=== PATIENT | female | born 1950 | race Caucasian/White ===

== ENCOUNTER 2016-06-03 15:24 | Outpatient (CLI) | payer OTHER | END 2016-06-03 15:25 | disposition home or self-care (01) | DX: M25.562 Pain in left knee (principal) ==

== ENCOUNTER 2016-07-26 09:58 | Outpatient (CLI) | payer OTHER | END 2016-07-26 09:59 | disposition home or self-care (01) | DX: M19.012 Primary osteoarthritis, left shoulder (principal); R07.81 Pleurodynia ==

== ENCOUNTER 2016-07-26 10:35 | Outpatient (CLI) | payer OTHER | END 2016-07-26 10:36 | disposition home or self-care (01) | DX: R10.9 Unspecified abdominal pain (principal); R07.81 Pleurodynia ==

== ENCOUNTER 2016-11-10 13:37 | Inpatient (IN) | payer OTHER ==
[2016-11-10 14:17] LABS: BILIRUBIN,URINE NEGATIVE (NEGATIVE); PH,URINE 5.5 PH (5.0-7.5)
[2016-11-10] MEDS ORDERED: MORPHINE 2 MG/ML SYRINGE IVP STA (14:17)
--- NOTE | 2016-11-10 14:20 | ED Physician Documentation ---
PD HPI ABD PAIN - Stated complaint Stated Complaint: STOMACH PAIN - Chief complaint Chief Complaint: Abd Pain - History obtained from History obtained from: Patient - History of Present Illness Timing - onset: Other (4 days increasing non-migratory RLQ pain with poor appetite but no fevers or nausea. Normal BMs, no urinary complaints. Had UA in the office, reportedly normal.) Review of Systems Ten Systems: 10 systems reviewed and negative Constitutional: reports: Fatigue. 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 Derm: Skin cancer surgery - Present Medications Home Medications: Ambulatory Orders Medication Instructions Recorded Confirmed Albuterol [Ventolin Hfa] 2 puffs IH Q6HR PRN 11/19/13 11/19/13 Carvedilol 12.5 mg PO BID 11/19/13 11/10/16 Enalapril [Vasotec] 10 mg PO BID 11/19/13 11/10/16 Hydrochlorothiazide 25 mg PO DAILY 11/19/13 11/10/16 Levothyroxine [Synthroid] 200 mcg PO DAILY 11/19/13 11/10/16 metFORMIN [Glucophage] 500 mg PO BID 11/19/13 11/10/16 Ascorbic Acid [Vitamin C] 1,000 mg DAILY 11/10/16 11/10/16 Aspirin 1 tab DAILY 11/10/16 11/10/16 Atorvastatin [Lipitor] 10 mg DAILY 11/10/16 11/10/16 Calcium Carbonate [[id number]] 500 mg BID 11/10/16 11/10/16 Cholecalciferol (Vitamin D3) 2,000 unit DAILY 11/10/16 11/10/16 [Vitamin D3] Dexlansoprazole [Dexilant] 30 mg DAILY 11/10/16 11/10/16 Multivitamin [Multivitamins] 1 tab DAILY 11/10/16 11/10/16 [place]-3/Dha/Epa/Fish Oil [Fish Oil 2 tab DAILY 11/10/16 11/10/16 1,000 mg Softgel] Ranitidine HCl 300 mg BID 11/10/16 11/10/16 - Allergies Allergies/Adverse Reactions: Allergies Allergy/AdvReac Type Severity Reaction Status Date / Time betamethasone Allergy Severe Respiratory Verified 11/19/13 10:47 droperidol [From Inapsine] Allergy Severe Respiratory Verified 11/19/13 09:21 venlafaxine HCl * Allergy Severe Respiratory Verified 11/19/13 10:44 [From Effexor] nabumetone [From Relafen] Allergy Intermediate Unknown Verified 11/19/13 09:19 celecoxib [From Celebrex] AdvReac Intermediate Unknown Verified 11/19/13 10:47 Zarcetu-Chv-Vbx Reductase AdvReac Intermediate Unknown Verified 11/19/13 10:47 Inhibitor - Social History Does the pt smoke?: No Smoking Status: Never smoker - Family History Family history: reports: Non contributory PD ED PE NORMAL - Vitals Vital signs reviewed: Yes - General General: Alert and oriented X 3, No acute distress - HEENT HEENT: PERRL, EOMI - Neck Neck: Supple, no meningeal sign, No bony TTP - Cardiac Cardiac: RRR, No murmur - Respiratory Respiratory: No respiratory distress, Clear bilaterally - Abdomen Abdomen: Normal bowel sounds, Soft, Other (Mild RLQ TTP) - Back Back: No CVA TTP, No spinal TTP - Derm Derm: Normal color, Warm and dry - Extremities Extremities: No edema, No calf tenderness / cord - Neuro Neuro: Alert and oriented X 3, Normal speech - Psych Psych: Normal mood, Normal affect Results - Vitals Vitals: Vital Signs - 24 hr 11/10/16 11/10/16 11/10/16 13:41 15:01 17:15 Temperature 36.7 C 37.3 C Heart Rate 72 70 70 Respiratory 18 12 16 Rate Blood Pressure 147/71 H 126/67 161/66 H O2 Saturation 99 97 97 Oxygen O2 Source Room air - EKG (time done) 1710 Rate: Rate (enter#) (75) Rhythm: NSR (with pac) [place]: Normal Intervals: Normal TN QRS: Normal Ischemia: Normal ST segments Computer interpretation: Agree with computer - Labs Labs: Laboratory Tests 11/10/16 11/10/16 11/10/16 14:00 14:10 14:10 WBC 10.9 H RBC 5.07 Hgb 14.3 Hct 42.0 MCV 82.7 MCH 28.1 MCHC 34.0 RDW 13.4 Plt Count 242 MPV 9.2 Neut # 8.3 H Lymph # 1.6 Mellette # 0.7 Eos # 0.1 Baso # 0.1 Absolute Nucleated RBC 0.00 Nucleated RBCs 0.0 PT INR APTT Sodium 137 Potassium 4.1 Chloride 98 L Carbon Dioxide 27 Anion Gap 12.0 BUN 17 Creatinine 0.7 Estimated GFR (MDRD) 84 L Glucose 131 H Calcium 10.6 H Total Bilirubin 1.0 AST 18 ALT 21 Alkaline Phosphatase 83 Total Protein 7.2 Albumin 4.4 Globulin 2.8 Albumin/Globulin Ratio 1.6 Lipase 35 Urine Color LT. YELLOW Urine Clarity CLEAR Urine pH 5.5 Ur Specific [place] <=1.005 Urine Protein NEGATIVE Urine Glucose (UA) NEGATIVE Urine Ketones NEGATIVE Urine Occult Blood NEGATIVE Urine Nitrite NEGATIVE Urine Bilirubin NEGATIVE Urine Urobilinogen 0.2 (NORMAL) Ur Leukocyte Esterase TRACE H Urine RBC 0-5 Urine WBC 0-3 Ur Squamous Epith Cells RARE Squamous Urine Bacteria None Seen Ur Microscopic Review INDICATED Urine Culture Comments INDICATED 11/10/16 16:30 WBC RBC Hgb Hct MCV MCH MCHC RDW Plt Count MPV Neut # Lymph # Mellette # Eos # Baso # Absolute Nucleated RBC Nucleated RBCs PT 12.2 INR 1.1 APTT 22.6 L Sodium Potassium Chloride Carbon Dioxide Anion Gap BUN Creatinine Estimated GFR (MDRD) Glucose Calcium Total Bilirubin AST ALT Alkaline Phosphatase Total Protein Albumin Globulin Albumin/Globulin Ratio Lipase Urine Color Urine Clarity Urine pH Ur Specific [place] Urine Protein Urine Glucose (UA) Urine Ketones Urine Occult Blood Urine Nitrite Urine Bilirubin Urine Urobilinogen Ur Leukocyte Esterase Urine RBC Urine WBC Ur Squamous Epith Cells Urine Bacteria Ur Microscopic Review Urine Culture Comments - Rads (name of study) CT A/P Radiology: EMP read contemporaneously (Acute appendicitis without evidence of perforation) PD MEDICAL DECISION MAKING - Consults Consults: Consulted (name) (Dr. Cote, the on-call surgeon, we spoke at 401 p.m., he will see the patient in emergency department.) Departure - Departure Disposition: ED Transfer to [facility] Clinical Impression: Appendicitis Qualifiers: Appendicitis type: acute appendicitis Acute appendicitis type: with localized peritonitis Qualified Code(s): K35.3 - Acute appendicitis with localized peritonitis Condition: Stable
[2016-11-10 14:28] LABS: UA w/ MICROSCOPIC CHARGE YES
[2016-11-10 14:28] LABS: BASOPHILS # (AUTO) 0.1 10^3/uL (0.0-0.1); BASOPHILS % (AUTO) 1.1 %; EOSINOPHILS # (AUTO) 0.1 10^3/uL (0.0-0.7); EOSINOPHILS % (AUTO) 1.4 %; HGB - HEMOGLOBIN 14.3 g/dL (12.0-16.0); LYMPHOCYTES # (AUTO) 1.6 10^3/uL (1.5-3.5); LYMPHOCYTES % (AUTO) 14.7 %; MEAN CORPUSCULAR HEMOGLOBIN 28.1 pg (27.0-31.0); MEAN CORPUSCULAR VOLUME 82.7 fL (81.0-99.0); MEAN PLATELET VOLUME 9.2 fL (7.9-10.8); MONOCYTES # (AUTO) 0.7 10^3/uL (0.0-1.0); MONOCYTES % (AUTO) 6.6 %; NEUTROPHILS # (AUTO) 8.3 10^3/uL (1.5-6.6); NEUTROPHILS % (AUTO) 76.2 %; RED BLOOD COUNT 5.07 10^6/uL (4.20-5.40); RED CELL DISTRIBUTION WIDTH 13.4 % (12.0-15.0); UNCORRECTED WHITE BLOOD COUNT 10.9 x10^3/uL; WHITE BLOOD COUNT 10.9 x10^3/uL (4.8-10.8)
[2016-11-10] MEDS ORDERED: MORPHINE 2 MG/ML SYRINGE ONE (14:28)
[2016-11-10 14:44] LABS: ALBUMIN/GLOBULIN RATIO 1.6 (1.0-2.2); CALCIUM 10.6 mg/dL (8.5-10.3); CREATININE 0.7 mg/dL (0.4-1.0); POTASSIUM 4.1 mmol/L (3.5-5.0); TOTAL PROTEIN 7.2 g/dL (6.7-8.2)
[2016-11-10 14:46] LABS: UR CULTURE IF IND INDICATED; WBC,URINE 0-3 /HPF (0-5)
[2016-11-10] MEDS ORDERED: IOPAMIDOL-300 100 ML VIAL IVP ONE (15:36)
--- NOTE | 2016-11-10 15:47 | CT Preliminary Report ---
Exam: CT Abdomen/Pelvis W/ IMPRESSION: 1. Acute appendicitis without evidence of perforation. 2. No bowel obstruction or inflammatory process associated with bowel. [facility] SITE ID: [id number]
--- NOTE | 2016-11-10 15:50 | CT Report ---
EXAM: CT ABDOMEN AND PELVIS EXAM DATE: 11/10/2016 03:34 PM. CLINICAL HISTORY: IV only, RLQ pain. COMPARISONS: None. TECHNIQUE: Routine helical CT imaging was performed through the abdomen and pelvis. IV contrast: 100 mL Isovue 300. Enteric contrast: No. Reconstructions: Coronal and sagittal. In accordance with CT protocol optimization, one or more of the following dose reduction techniques w ere utilized for this exam: automated exposure control, adjustment of mA and/or KV based on patient s ize, or use of iterative reconstructive technique. FINDINGS: Lung Bases: Unremarkable. Liver: There is a 2.3 cm hypodense structure in the posterior aspect of the right lobe of the liver ( series 3, image 20) with a Hounsfield unit of 47. Gallbladder/Bile Ducts: Status post cholecystectomy. Spleen: Normal. Pancreas: Normal. Adrenal Glands: Normal. Kidneys: Normal. No masses or hydronephrosis. Peritoneal Cavity/Bowel: Normal. No free fluid, free air or adenopathy. No masses or acute inflammato ry process. The appendix is dilated up to 19 mm with adjacent fat stranding. No free fluid or free ai r in the abdomen or pelvis. No loculated fluid collection to suggest abscess. Pelvic Organs: Normal. The bladder and visualized pelvic organs are within normal limits. Vasculature: No aneurysms or other significant abnormality. Bones: No significant abnormality. Other: None. IMPRESSION: 1. Acute appendicitis without evidence of perforation. 2. No bowel obstruction or inflammatory process associated with bowel. [facility] Referring Provider Line: [phone] SITE ID: [id number]
[2016-11-10] MEDS ORDERED: PIPERACILLIN/TAZOBACTAM 3.375 GM in SODIUM CHLORIDE 0.9% MINIBAG 100 ML IV STA (16:14)
--- NOTE | 2016-11-10 16:45 | HISTORY & PHYSICAL EXAMINATION ---
Chief Complaint - Chief Complaint Chief Complaint: Abdominal pain History of Present Illness - Admitted From Admitted From:: ED - History Obtained From Records Reviewed: yes History obtained from: Patient Exam Limitations: no - History of Present Illness Pain/Problem Location Description: RLQ abdomen Severity: 6-8/10 Quality: sharp Duration: 4 days Improved with: IV pain medication Worsened by: movement Associated Symptoms: Nausea Vomiting HPI Comment/Other: 66 yo female with PMHX of HT, DM, GERD, High cholesterol,Thyroid CA s/p Thyroidectomy, Melanoma, Sleep apnea presents with 4 day hx of abdominal pain associated with Nausea and vomiting. Went to PCP yesterday and was instructed to come to ED today. She denies any diarrhea or fevers. Last meal this AM. CT scan positive for appendicitis Review of Systems - Constitutional Constitutional: reports: Fatigue - Eyes Eyes: denies: Pain - Ears, Nose & Throat Ears, Nose & Throat: denies: Ear pain - Cardiovascular Cariovascular: denies: Irregular heart rate, Palpitations, Chest pain - Respiratory Respiratory: reports: Snoring. denies: Cough, Wheezing - Gastrointestinal Gastrointestinal: reports: Abdominal pain, Nausea, Vomiting. denies: Constipation, Diarrhea - Genitourinary Genitourinary: reports: Frequency. denies: Dysuria - Musculoskeletal Musculoskeletal: denies: Muscle pain - Integumentary Integumentary: denies: Rash - Psychiatric Psychiatric: denies: Depression - Endocrine Endocrine: denies: Polyuria - Hematologic/Lymphatic Hematologic/Lymphatic: denies: Anemia - All Other Systems All Other Systems: reports: Reviewed and negative History - Past Medical History Cardiovascular: reports: Hypertension, High cholesterol Respiratory: reports: Sleep apnea (does not use CPAP) Endocrine/Autoimmune: reports: Type 2 diabetes GI: reports: GERD, Other : reports: Incontinence, Frequency HEENT: reports: None Musculoskeletal: reports: Osteoarthritis, Other Derm: reports: Psoriasis, Other MRSA Hx?: No Other Past Medical History: thyroid cancer. h pylori. 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 - Substance History Use: Uses substance without health or social issues: NONE Abuse: Recurrent use of substance despite neg consequences: NONE Dependence: Experiences withdrawal or developed tolerances: NONE Meds/Allgy - Home Medications Home Medications: Ambulatory Orders Medication Instructions Recorded Confirmed Albuterol [Ventolin Hfa] 2 puffs IH Q6HR PRN 11/19/13 11/19/13 Carvedilol 12.5 mg PO BID 11/19/13 11/10/16 Enalapril [Vasotec] 10 mg PO BID 11/19/13 11/10/16 Hydrochlorothiazide 25 mg PO DAILY 11/19/13 11/10/16 Levothyroxine [Synthroid] 200 mcg PO DAILY 11/19/13 11/10/16 metFORMIN [Glucophage] 500 mg PO BID 11/19/13 11/10/16 Ascorbic Acid [Vitamin C] 1,000 mg DAILY 11/10/16 11/10/16 Aspirin 1 tab DAILY 11/10/16 11/10/16 Atorvastatin [Lipitor] 10 mg DAILY 11/10/16 11/10/16 Calcium Carbonate [[id number]] 500 mg BID 11/10/16 11/10/16 Cholecalciferol (Vitamin D3) 2,000 unit DAILY 11/10/16 11/10/16 [Vitamin D3] Dexlansoprazole [Dexilant] 30 mg DAILY 11/10/16 11/10/16 Multivitamin [Multivitamins] 1 tab DAILY 11/10/16 11/10/16 [place]-3/Dha/Epa/Fish Oil [Fish Oil 2 tab DAILY 11/10/16 11/10/16 1,000 mg Softgel] Ranitidine HCl 300 mg BID 11/10/16 11/10/16 - Allergies Allergies/Adverse Reactions: Allergies Allergy/AdvReac Type Severity Reaction Status Date / Time betamethasone Allergy Severe Respiratory Verified 11/19/13 10:47 droperidol [From Inapsine] Allergy Severe Respiratory Verified 11/19/13 09:21 venlafaxine HCl * Allergy Severe Respiratory Verified 11/19/13 10:44 [From Effexor] nabumetone [From Relafen] Allergy Intermediate Unknown Verified 11/19/13 09:19 celecoxib [From Celebrex] AdvReac Intermediate Unknown Verified 11/19/13 10:47 Hmizqre-Asd-Isa Reductase AdvReac Intermediate Unknown Verified 11/19/13 10:47 Inhibitor Exam - Vital Signs Reviewed Vital Signs: Yes Vital Signs: Vital Signs x48h Temp Pulse Resp BP Pulse Ox 11/10/16 15:01 70 12 126/67 97 11/10/16 13:41 36.7 C 72 18 147/71 H 99 - Physical Exam General Appearance: positive: No acute distress, Alert Eyes Bilateral: positive: EOMI ENT: positive: No signs of dehydration Neck: positive: No JVD Respiratory: positive: Breath sounds nml Cardiovascular: positive: Regular rate & rhythm Peripheral Pulses: positive: 2+ Abdomen: positive: Nml bowel sounds (+ BS, Obese soft, mild tenderness to palpation. ND, No rebound or guarding. Pannus. Well healed surgical scars noted periumbilical & lower abdomen) Skin: positive: Warm, Dry Extremities: positive: Nml appearance Neurologic/Psychiatric: positive: Oriented x3, CN's nml (2-12) Conclusion/Plan - Problem List (1) Appendicitis Conclusion/Plan: 66 yo female with Multiple medical problems and multiple past surgical history now with appendicitis and liver lesion noted Admit to surgery NPO IVF Pain control Zosyn IVPB OR today for laparoscopic appendectomy possible open appendectomy. Patient will need further workup of liver lesion (Present on CT scan from 2007) Qualifiers: Appendicitis type: acute appendicitis Acute appendicitis type: with localized peritonitis Qualified Code(s): K35.3 - Acute appendicitis with localized peritonitis - Lab Results Lab results reviewed: Yes Fish Bones: 11/10/16 14:10 11/10/16 14:10 - Diagnostic Imaging Results Diagnostic Imaging Results: positive: Read contemporaneously (IMPRESSION: 1. Acute appendicitis without evidence of perforation. 2. No bowel obstruction or inflammatory process associated with bowel. There is a 2.3 cm hypodense structure in the posterior aspect of the right lobe of the liver) Issues/Core Measures - Anticipated LOS Anticipated Stay Length: Less than 2 midnights - DVT/VTE - Prophylaxis VTE/DVT Device ordered at admit?: Yes VTE/DVT Prophylaxis med ordered at admit?: Yes
[2016-11-10 16:47] LABS: INR 1.1 (0.8-1.2); PT - PROTHROMBIN TIME 12.2 secs (9.9-12.6)
[2016-11-10 16:54] LABS: PARTIAL THROMBOPLASTIN TIME 22.6 secs (24.9-33.3)
[2016-11-10] MEDS ORDERED: diphenhydrAMINE INJ 50 MG/ML VIAL IVP PRN (17:00)
[2016-11-10] MEDS ORDERED: ceFAZolin 2 GM/50 ML 50 ML IV ONE (17:00)
[2016-11-10] MEDS ORDERED: SODIUM CHLORIDE FLUSH 0.9% 10 ML SYRINGE IVP PRN (17:00)
[2016-11-10] MEDS ORDERED: MORPHINE PCA 50 MG IV PRN (17:00)
[2016-11-10] MEDS ORDERED: ONDANSETRON 4 MG/2 ML VIAL IVP PRN (17:00)
[2016-11-10] MEDS ORDERED: LACTATED RINGERS 1,000 ML IV SCH (17:00)
[2016-11-10] MEDS ORDERED: ROCURONIUM 50 MG/5 ML VIAL IVP ONE (17:15)
[2016-11-10] MEDS ORDERED: PROPOFOL 200 MG/20 ML VIAL IVP ONE (17:15)
[2016-11-10] MEDS ORDERED: KETOROLAC 30 MG/ML VIAL IVP ONE (17:15)
[2016-11-10] MEDS ORDERED: ePHEDrine 50 MG/ML AMP IVP ONE (17:15)
[2016-11-10] MEDS ORDERED: MIDAZOLAM 2 MG/2 ML VIAL IVP ONE (17:15)
[2016-11-10] MEDS ORDERED: SUCCINYLCHOLINE 200 MG/10 ML VIAL IVP ONE (17:15)
[2016-11-10] MEDS ORDERED: LIDOCAINE-MPF 2% 5 ML VIAL IM ONE (17:15)
[2016-11-10] MEDS ORDERED: PHENYLEPHRINE 50 MG/5 ML VIAL IV ONE (17:15)
[2016-11-10] MEDS ORDERED: NEOSTIGMINE 1 MG/1 ML 10 ML MDV IVP ONE (17:15)
[2016-11-10] MEDS ORDERED: ONDANSETRON 4 MG/2 ML VIAL IVP ONE (17:15)
[2016-11-10] MEDS ORDERED: SODIUM CHLORIDE 0.9% 10 ML VIAL IV ONE (17:15)
[2016-11-10] MEDS ORDERED: DEXAMETHASONE 4 MG/ML VIAL IVP ONE (17:15)
[2016-11-10] MEDS ORDERED: GLYCOPYRROLATE 1 MG/5 ML VIAL IVP ONE (17:15)
[2016-11-10] MEDS ORDERED: fentaNYL 100 MCG/2 ML VIAL IVP ONE (17:15)
[2016-11-10] MEDS ORDERED: LACTATED RINGERS 1,000 ML IV ONE ×2 (18:01→18:26)
[2016-11-10] MEDS ORDERED: LIDOCAINE MPF 1%-EPI 1:200000 30 ML VIAL SUBQ ONE (18:25)
[2016-11-10] MEDS ORDERED: MORPHINE 2 MG/ML SYRINGE IVP PRN (19:51)
[2016-11-10] MEDS ORDERED: oxyCODONE 5 MG TABLET PO PRN (19:51)
[2016-11-10] MEDS ORDERED: fentaNYL 100 MCG/2 ML VIAL ONE (20:04)
[2016-11-10] MEDS ORDERED: PANTOPRAZOLE 40 MG VIAL IVP SCH (21:00)
[2016-11-10] MEDS: PANTOPRAZOLE 40 MG VIAL IVP SCH (21:02)
[2016-11-10] MEDS: LACTATED RINGERS 1,000 ML IV SCH (21:03)
[2016-11-10] MEDS: ACETAMINOPHEN 1,000 MG/100 ML 100 ML IV SCH (21:03)
[2016-11-10] MEDS ORDERED: SODIUM CHLORIDE FLUSH 0.9% 10 ML SYRINGE IVP SCH (22:00)
[2016-11-10] MEDS: SODIUM CHLORIDE FLUSH 0.9% 10 ML SYRINGE IVP SCH (22:46)
[2016-11-10] MEDS: IBUPROFEN 400 MG TABLET PO PRN (23:42)
[2016-11-10] MEDS: BENZOCAINE/MENTHOL LOZENGE MM PRN (23:43)
[2016-11-10] MEDS: CARBOXYMETHYLCELLULOSE OPHTH DROPS EACHEYE PRN (23:57)
[2016-11-11] MEDS: INSULIN REGULAR HUMAN 100 UNIT/1 ML 10 ML MDV SUBQ SCH ×2 (00:57→06:54)
[2016-11-11] MEDS: ACETAMINOPHEN 1,000 MG/100 ML 100 ML IV SCH ×3 (04:06→14:20)
[2016-11-11] MEDS: BENZOCAINE/MENTHOL LOZENGE MM PRN (04:16)
[2016-11-11] MEDS: CARBOXYMETHYLCELLULOSE OPHTH DROPS EACHEYE PRN (04:16)
--- NOTE | 2016-11-11 06:27 | OPERATIVE REPORT ---
DATE OF SURGERY: 11/10/2016 00:00:00 PREOPERATIVE DIAGNOSIS: Abdominal pain. POSTOPERATIVE DIAGNOSIS: Acute nonperforated appendicitis. PROCEDURE: Laparoscopic appendectomy. SURGEON: Thaddeus Cote DO. ANESTHESIA: General by Karl Fuentes CRNA. FINDINGS: Acute appendicitis without rupture. SPECIMEN: Appendix. COMPLICATIONS: None. ESTIMATED BLOOD LOSS: 5 mL. URINE OUTPUT: 150 mL. INTRAVENOUS FLUIDS: 1900 mL of LR. INDICATIONS: This 66-year-old female with past medical history of diabetes, hypertension, high cholesterol, hypothyroidism presented with right lower quadrant pain for 4 days' duration associated with some nausea. She was seen by her primary care doctor and told to come to the ER due to suspicion of appendicitis. CT scan noted acute nonruptured appendicitis and a 2.3 cm hypodense structure in the posterior aspect of the right lobe of the liver with a Hounsfield unit of 47, which, after discussion with the radiologist is consistent with a hemangioma. Laparoscopic possible open procedure was discussed with the patient. The risks and benefits including, but not limited to risks of infection, bleeding, risk of abscess, risk of fistula, risk of , anesthesia risk, skin infection, scar formation, and skin irregularities were discussed with the patient. The patient agreed to the procedure and signed consent. All questions were answered. DESCRIPTION OF PROCEDURE: The patient was taken to the operating room and placed in the supine position. General anesthesia was induced after SCDs were placed. A Najera catheter was placed. The patient had been given Zosyn in the emergency room and Ancef perioperatively. The patient was prepped and draped in the usual sterile fashion. A timeout was completed verifying the correct patient , procedure site, position prior to start of procedure. Xylocaine 1% with epinephrine was used supraumbilically, as well as all trocar sites. A #15 mm blade was used to create a transverse supraumbilical incision. The abdominal cavity was accessed using the Welsh technique with a 12 mm trocar. A Bong trocar was placed supraumbilically under direct vision. A 5 mm trocar was placed suprapubically. A 5 mm trocar was placed in the left lower quadrant with both of the trocars placed under direct vision. The abdomen and pelvis were scanned with no signs of injury from the trocars. No gross pelvic disease was observed. The liver appeared unremarkable. No liver lesions were noted. Pictures were taken. The patient was then placed in Trendelenburg with the left side down. The appendix was found to be hyperemic and edematous with the tip bulbous and nonruptured and adhesed to the right parietal peritoneum. No free fluid or exudate were noted. The proximal appendix was grasped with a Andria and the appendix was freed from the adhesions. The mesoappendix was dissected bluntly and ligated with the LigaSure. A single blue load was fired across the base of the appendix with complete transection. The appendix was then removed through the umbilical port with an EndoCatch bag. The abdomen was irrigated with saline and suctioned. Hemostasis was maintained. The staple line was inspected and appeared intact with no signs of leakage or bleeding; and 0 Vicryl interrupted sutures were used to close the fascia of the 12 mm port under direct vision. The skin was then washed copiously and dried, and 4-0 Monocryl was used for subcuticular closure followed by application of Steri-Strips to the supraumbilical port and Dermabond to the other sites, then gauze and Tegaderms. The appendix was sent to pathology. The patient tolerated the procedure well, was extubated, Najera removed, and taken to PACU for recovery. All counts were correct. JOB #: [id number] EXT JOB #:[id number] ANTOINE
[2016-11-11 06:33] LABS: HEMOGLOBIN A1C 0.64 g/dL
[2016-11-11] MEDS: SODIUM CHLORIDE FLUSH 0.9% 10 ML SYRINGE IVP SCH ×2 (06:45→13:28)
[2016-11-11] MEDS: LEVOTHYROXINE 100 MCG TABLET PO SCH (06:53)
[2016-11-11] MEDS: IBUPROFEN 400 MG TABLET PO PRN ×2 (06:53→12:31)
[2016-11-11] MEDS: LACTATED RINGERS 1,000 ML IV SCH (06:54)
[2016-11-11] MEDS: POLYETHYLENE GLYCOL 3350 17 GM PACKET PO SCH (08:15)
[2016-11-11] MEDS: PANTOPRAZOLE 40 MG VIAL IVP SCH (08:15)
[2016-11-11] MEDS: hydroCHLOROthiazide 25 MG TABLET PO SCH (08:15)
[2016-11-11] MEDS: CARVEDILOL 12.5 MG TABLET PO SCH ×2 (08:15→09:31)
--- NOTE | 2016-11-11 10:15 | PROVIDER PROGRESS NOTE ---
Subjective - General Admit Date: 11/10/16 Procedure Date: 11/10/16 Post Op Days: 1 Procedure Performed: Laparoscopic appendectomy - Review of Systems Wound/Incisions: positive: Dressing dry and intact General: positive: No symptoms HEENT: positive: No symptoms Pulmonary: positive: No symptoms Cardiovascular: positive: No symptoms Gastrointestinal: positive: No symptoms, Abdominal pain (pain 4/10 post operative appropriate) Genitourinary: positive: No symptoms Musculoskeletal: positive: No symptoms Skin: positive: No symptoms Psychiatric: positive: No symptoms All Other Systems: positive: Reviewed and negative - Other Other Information/Narrative: Patient seen bedside. State pain is 4 /10. Has been ambulating some. No flatus or bowel movement. Using IS. States her right eye felt itchy and improved with saline eye drops. Denies any double vision. No other issues reported Objective - Patient Data Reviewed Vital Signs: Yes Vital Signs: Vital Signs x48h Temp Pulse Resp BP Pulse Ox 11/11/16 07:38 36.2 C L 68 16 112/64 92 11/11/16 04:13 36.2 C L 72 16 115/69 93 Weight: Weight 11/09/16 11/10/16 11/11/16 23:59 23:59 23:59 Weight (kg) 88.904 kg Intake & Output: Intake and Output Totals x24h 11/09/16 11/10/16 11/11/16 23:59 23:59 23:59 Intake Total 150 1770 Output Total 1600 Balance 150 170 - Lab Results Lab Results: 11/10/16 14:10 11/10/16 14:10 Other Lab Results: Lab Results x24hrs 11/11/16 11/11/16 11/11/16 Range/Units 06:29 05:32 00:12 POC Whole Bld Glucose 190 H 205 H (70 - 100) mg/dL Glycated Hemoglobin 6.6 H (4.6-6.2) % Estim Average Glucose 143 H (70-100) 11/10/16 Range/Units 21:33 POC Whole Bld Glucose 198 H (70 - 100) mg/dL Glycated Hemoglobin (4.6-6.2) % Estim Average Glucose (70-100) - Imaging Results Radiology Imaging: positive: Discussed with rads (Liver lesion consistent with hemangioma) - Current Medications Current Medications: Current Medications Generic Name Dose Route Start Last Admin Trade Name Freq PRN Reason Stop Dose Admin Carboxymethylcellulose 0 drops 11/10/16 23:35 11/11/16 04:16 Refresh 1% Ophth Drops EACHEYE 1 drops PRN PRN Administration Dry Eye Carvedilol 12.5 mg 11/11/16 08:00 11/11/16 09:31 Coreg PO Not Given BID HANNA Hydrochlorothiazide 25 mg 11/11/16 09:00 11/11/16 08:15 Hydrodiuril PO 25 mg DAILY HANNA Administration Acetaminophen 100 mls @ 400 mls/hr 11/10/16 21:00 11/11/16 08:15 Ofirmev IV 400 mls/hr Q6H HANNA Administration Lactated Ringer's 1,000 mls @ 75 mls/hr 11/10/16 20:32 11/11/16 06:54 Lr IV 75 mls/hr .[id number] HANNA Administration Ibuprofen 400 mg 11/10/16 19:51 11/11/16 06:53 Motrin PO 400 mg Q4HR PRN Administration Pain 1 to 4 Insulin Human Regular 1 - 5 unit 11/11/16 00:00 11/11/16 06:54 Novolin R SUBQ 2 unit Q6HR HANNA Administration Protocol Levothyroxine Sodium 200 mcg 11/11/16 07:00 11/11/16 06:53 Synthroid PO 200 mcg QDAC HANNA Administration Morphine Sulfate 3 mg 11/10/16 19:51 11/10/16 23:43 Morphine IVP 3 mg Q2HR PRN Administration Pain 8 to 10 Ondansetron HCl 4 mg 11/10/16 17:00 11/10/16 23:43 Zofran Inj IVP 4 mg Q6HR PRN Administration Nausea / Vomiting Oxycodone HCl 5 mg 11/10/16 19:51 11/11/16 04:06 Roxicodone PO 5 mg Q4HR PRN Administration Pain 5 to 7 Pantoprazole Sodium 40 mg 11/10/16 21:00 11/11/16 08:15 Protonix IVP 40 mg BID HANNA Administration Polyethylene Glycol 17 gm 11/11/16 09:00 11/11/16 08:15 Miralax PO Not Given DAILY HANNA Sodium Chloride 10 ml 11/10/16 22:00 11/11/16 06:45 Normal Saline Flush 0.9% IVP Not Given Q8HR HANNA Throat Lozenges 1 lozenge 11/10/16 21:04 11/11/16 04:16 Cepacol MM 1 lozenge Q2HR PRN Administration Throat pain - Physical Exam Wound/Incisions: positive: Dressing dry and intact General Appearance: positive: No acute distress, Alert Eyes Bilateral: positive: Normal inspection, PERRL, EOMI, No lid inflammation, Conjunctivae nml ENT: positive: No signs of dehydration Neck: positive: No JVD Cardiovascular: positive: Regular rate & rhythm Abdomen: positive: Tenderness (+ BS hypoactive, ND, Mild TTP, no rebound or guarding, surgical dressing c/d/i) Skin: positive: Warm, Dry Extremities: negative: Pedal edema, Calf tenderness, Neeraj's sign/cords Neurologic/Psychiatric: positive: Oriented x3, CN's nml (2-12) Impression/Plan - Problem List Problem List: 66 yo female with multiple medical problems s/p Laparoscopic appendectomy Continue IV abx Pain control will advance diet as tolerated. Will restart home medications
[2016-11-11] MEDS ORDERED: LACTATED RINGERS 1,000 ML IV SCH (10:20)
[2016-11-11] MEDS: INSULIN ASPART 300 UNIT/3 ML PEN SUBQ SCH (11:14)
[2016-11-11] MEDS: HEPARIN 5,000 UNIT/ML VIAL SUBQ SCH (12:18)
[2016-11-11] MEDS: PIPERACILLIN/TAZOBACTAM 3.375 GM in SODIUM CHLORIDE 0.9% MINIBAG 100 ML IV SCH (12:23)
[2016-11-11] MEDS: SODIUM CHLORIDE FLUSH 0.9% 10 ML SYRINGE IVP PRN ×2 (12:24→14:20)
[2016-11-11 14:26] LABS: BUN - BLOOD UREA NITROGEN 14 mg/dL (6-20); CALCIUM 9.7 mg/dL (8.5-10.3); CARBON DIOXIDE - CO2 24 mmol/L (21-32); CHLORIDE 94 mmol/L (101-111); CREATININE 0.9 mg/dL (0.4-1.0); GFR - MDRD 63 (>89); GLUCOSE 196 mg/dL (70-100); POTASSIUM 3.7 mmol/L (3.5-5.0); SODIUM 128 mmol/L (135-145)
[2016-11-11] MEDS ORDERED: SODIUM CHLORIDE 0.9% 1,000 ML IV ONE (16:36)
[2016-11-11] MEDS ORDERED: SODIUM CHLORIDE 0.9% 1,000 ML IV SCH (20:00)
[2016-11-11] MEDS ORDERED: FUROSEMIDE 20 MG/2 ML VIAL IVP SCH (21:10)
[2016-11-11 21:18] LABS: CALCIUM 9.8 mg/dL (8.5-10.3); CREATININE 0.8 mg/dL (0.4-1.0); POTASSIUM 3.5 mmol/L (3.5-5.0)
[2016-11-12] MEDS: INSULIN ASPART 300 UNIT/3 ML PEN SUBQ SCH ×3 (01:22→07:42)
[2016-11-12] MEDS: ACETAMINOPHEN 1,000 MG/100 ML 100 ML IV SCH ×3 (01:23→08:19)
[2016-11-12] MEDS: HEPARIN 5,000 UNIT/ML VIAL SUBQ SCH ×2 (01:23→08:18)
[2016-11-12] MEDS: PIPERACILLIN/TAZOBACTAM 3.375 GM in SODIUM CHLORIDE 0.9% MINIBAG 100 ML IV SCH ×3 (01:23→06:17)
[2016-11-12] MEDS: CARVEDILOL 12.5 MG TABLET PO SCH ×2 (01:23→08:20)
[2016-11-12] MEDS: SODIUM CHLORIDE FLUSH 0.9% 10 ML SYRINGE IVP SCH ×2 (01:24→06:20)
[2016-11-12] MEDS: PANTOPRAZOLE 40 MG VIAL IVP SCH ×2 (01:24→08:20)
[2016-11-12 06:21] LABS: CALCIUM 9.4 mg/dL (8.5-10.3); CREATININE 0.9 mg/dL (0.4-1.0); POTASSIUM 3.9 mmol/L (3.5-5.0)
[2016-11-12] MEDS: LEVOTHYROXINE 100 MCG TABLET PO SCH (06:21)
[2016-11-12] MEDS: POLYETHYLENE GLYCOL 3350 17 GM PACKET PO SCH (08:20)
[2016-11-12] MEDS: hydroCHLOROthiazide 25 MG TABLET PO SCH (08:20)
[2016-11-12] MEDS: SODIUM CHLORIDE FLUSH 0.9% 10 ML SYRINGE IVP PRN (08:21)
[2016-11-12 08:42] VITALS: BP 125/66
--- NOTE | 2016-11-12 10:01 | PROVIDER PROGRESS NOTE ---
Subjective - General Admit Date: 11/10/16 Procedure Date: 11/10/16 Post Op Days: 2 Procedure Performed: Laparoscopic appendectomy - Review of Systems Wound/Incisions: positive: Healing well, Dressing dry and intact General: positive: No symptoms HEENT: positive: No symptoms Pulmonary: positive: No symptoms Cardiovascular: positive: No symptoms Gastrointestinal: positive: No symptoms, Abdominal pain (pain 4/10 post operative appropriate) Genitourinary: positive: No symptoms Musculoskeletal: positive: No symptoms Skin: positive: No symptoms Psychiatric: positive: No symptoms All Other Systems: positive: Reviewed and negative - Other Other Information/Narrative: Patient seen at bedside. States she feels improved. Has been using IS, ambulating urinating well and passing gas. No issues. Objective - Patient Data Reviewed Vital Signs: Yes Vital Signs: Vital Signs x48h Temp Pulse Resp BP Pulse Ox 11/12/16 08:41 36.7 C 56 L 16 125/66 94 11/12/16 05:08 36.3 C L 66 16 109/66 97 Weight: Weight 11/10/16 11/11/16 11/12/16 23:59 23:59 23:59 Weight (kg) 88.904 kg Intake & Output: Intake and Output Totals x24h 11/10/16 11/11/16 11/12/16 23:59 23:59 23:59 Intake Total 150 2311 510 Output Total 1600 Balance 150 711 510 - Lab Results Lab Results: 11/10/16 14:10 11/12/16 05:40 Other Lab Results: Lab Results x24hrs 11/12/16 11/12/16 11/11/16 Range/Units 07:33 05:40 21:03 Sodium 139 133 L (135-145) mmol/L Potassium 3.9 3.5 (3.5-5.0) mmol/L Chloride 103 97 L (101-111) mmol/L Carbon Dioxide 28 26 (21-32) mmol/L Anion Gap 8.0 10.0 (6-13) BUN 13 14 (6-20) mg/dL Creatinine 0.9 0.8 (0.4-1.0) mg/dL Estimated GFR (MDRD) 63 L 72 L (>89) Glucose 132 H 212 H (70-100) mg/dL POC Whole Bld Glucose 130 H (70 - 100) mg/dL Calcium 9.4 9.8 (8.5-10.3) mg/dL Ionized Calcium PTH Intact (12-88) pg/mL 11/11/16 11/11/16 11/11/16 Range/Units 20:26 16:39 14:05 Sodium 128 L (135-145) mmol/L Potassium 3.7 (3.5-5.0) mmol/L Chloride 94 L (101-111) mmol/L Carbon Dioxide 24 (21-32) mmol/L Anion Gap 10.0 (6-13) BUN 14 (6-20) mg/dL Creatinine 0.9 (0.4-1.0) mg/dL Estimated GFR (MDRD) 63 L (>89) Glucose 196 H (70-100) mg/dL POC Whole Bld Glucose 264 H 140 H (70 - 100) mg/dL Calcium 9.7 (8.5-10.3) mg/dL Ionized Calcium NO PTH Intact (12-88) pg/mL 11/11/16 11/11/16 Range/Units 14:05 11:04 Sodium (135-145) mmol/L Potassium (3.5-5.0) mmol/L Chloride (101-111) mmol/L Carbon Dioxide (21-32) mmol/L Anion Gap (6-13) BUN (6-20) mg/dL Creatinine (0.4-1.0) mg/dL Estimated GFR (MDRD) (>89) Glucose (70-100) mg/dL POC Whole Bld Glucose 195 H (70 - 100) mg/dL Calcium (8.5-10.3) mg/dL Ionized Calcium PTH Intact 49 (12-88) pg/mL - Current Medications Current Medications: Current Medications Generic Name Dose Route Start Last Admin Trade Name Freq PRN Reason Stop Dose Admin Carboxymethylcellulose 0 drops 11/10/16 23:35 11/11/16 04:16 Refresh 1% Ophth Drops EACHEYE 1 drops PRN PRN Administration Dry Eye Carvedilol 12.5 mg 11/11/16 08:00 11/12/16 08:20 Coreg PO 12.5 mg BID HANNA Administration Heparin Sodium (Porcine) 5,000 unit 11/11/16 12:00 11/12/16 08:18 SUBQ 5,000 unit BID HANNA Administration Hydrochlorothiazide 25 mg 11/11/16 09:00 11/12/16 08:20 Hydrodiuril PO 25 mg DAILY HANNA Administration Acetaminophen 100 mls @ 400 mls/hr 11/10/16 21:00 11/12/16 08:19 Ofirmev IV 400 mls/hr Q6H HANNA Administration Piperacillin Sod/Tazobactam 100 mls @ 200 mls/hr 11/11/16 12:00 11/12/16 06:17 Sod 3.375 gm/ Sodium Chloride IV 200 mls/hr Q6H HANNA Administration Ibuprofen 400 mg 11/10/16 19:51 11/11/16 12:31 Motrin PO 400 mg Q4HR PRN Administration Pain 1 to 4 Insulin Aspart 1 - 5 unit 11/11/16 12:00 11/12/16 07:42 Novolog SUBQ Not Given 0800,1200,1700,2100 [facility] Protocol Levothyroxine Sodium 200 mcg 11/11/16 07:00 11/12/16 06:21 Synthroid PO 200 mcg QDAC HANNA Administration Morphine Sulfate 3 mg 11/10/16 19:51 11/10/16 23:43 Morphine IVP 3 mg Q2HR PRN Administration Pain 8 to 10 Ondansetron HCl 4 mg 11/10/16 17:00 11/10/16 23:43 Zofran Inj IVP 4 mg Q6HR PRN Administration Nausea / Vomiting Oxycodone HCl 5 mg 11/10/16 19:51 11/11/16 04:06 Roxicodone PO 5 mg Q4HR PRN Administration Pain 5 to 7 Pantoprazole Sodium 40 mg 11/10/16 21:00 11/12/16 08:20 Protonix IVP 40 mg BID HANNA Administration Polyethylene Glycol 17 gm 11/11/16 09:00 11/12/16 08:20 Miralax PO 17 gm DAILY HANNA Administration Sodium Chloride 10 ml 11/10/16 17:00 11/12/16 08:21 Normal Saline Flush 0.9% IVP 10 ml PRN PRN Administration NEEDED PER PROVIDER ORDERS Sodium Chloride 10 ml 11/10/16 22:00 11/12/16 06:20 Normal Saline Flush 0.9% IVP 10 ml Q8HR HANNA Administration Throat Lozenges 1 lozenge 11/10/16 21:04 11/11/16 04:16 Cepacol MM 1 lozenge Q2HR PRN Administration Throat pain - Physical Exam Wound/Incisions: positive: Healing well General Appearance: positive: No acute distress Eyes Bilateral: positive: EOMI ENT: positive: No signs of dehydration Neck: positive: No JVD Respiratory: positive: Chest non-tender Cardiovascular: positive: Regular rate & rhythm Abdomen: positive: Non-tender Skin: positive: Warm, Dry Extremities: positive: Non-tender Neurologic/Psychiatric: positive: Oriented x3, CN's nml (2-12) Impression/Plan - Problem List Problem List: 66 yo female with Diabetes, Hypertension, Hypothyroid, s/p Laparoscopic appendectomy for acute appendicitis with localized peritonitis Patient's overall condition improved. Sugars under control. Will discharge home on Bactrim DS Follow up in surgery clinic this coming week
--- NOTE | 2016-11-12 10:23 | Discharge Plan ---
Discharge Plan Disposition: Home, Self Care Condition: Stable Prescriptions: Hydrocodone/Acetaminophen [Vicodin 5-300 mg Tablet] 1 each PO Q6HR PRN #20 tablet PRN Reason: Pain Ondansetron HCl [Zofran] 8 mg PO Q8HR PRN #12 tablet PRN Reason: Nausea / Vomiting Sulfamethox/Trimeth 800/160 [Bactrim Ds 800/160] 1 each PO BID #20 tablet Docusate Sodium 250Mg Capsule [Colace 250Mg Capsule] 250 mg PO BID PRN #30 capsule PRN Reason: Constipation Diet: Diabetic Activity Restrictions: Activity as Tolerated (Do not lift more than 20 lbs) Shower Restrictions: No Driving Restrictions: Yes (No driving while taking narcotics) Weight Bearing: Full Weight Additional Instructions or Follow Up instructions: You can restart all your home medications. You must ambulate 30 minutes 3 times daily. Continue using incentive spirometer 3 times daily. No heavy lifting more than [address], operate heavy machinery or sign documents on narcotic pain medication. You may take motrin or Tylenol for pain every 6 hours instead of Narcotic pain medication. You may shower with dressing on. Leave dressing on until 11/14/16. you may take off outer dressing and leave steri-strips alone, they will fall off on their own. If wound develops redness or discharge call me for further instructions. If severe abdominal pain returns or develop fevers, return to the ER for evaluation. Please call 19/12 with any questions. Follow up next week in the office. Please call Monday for an appointment same week [phone]. No Smoking: If you smoke, Please STOP! Call for help. Follow-up with: Esperanza Richardson PA [Primary Care Provider] - 1 Week Thaddeus Cote DO [Provider Admit Priv/Credential] - 1 Week
--- NOTE | 2016-11-13 02:25 | DISCHARGE SUMMARY ---
DATE OF ADMISSION: 11/10/2016 DATE OF DISCHARGE: 11/12/2016 ATTENDING PHYSICIAN: Thaddeus Cote DO CONDITION ON DISCHARGE: Stable & improved. FINAL DIAGNOSIS: Acute appendicitis with localized peritonitis. PROCEDURE: Laparoscopic appendectomy. HISTORY OF PRESENT ILLNESS: This 66-year-old female, with past medical history of hypertension, diabetes, GERD, high cholesterol, thyroid cancer status post thyroidectomy, melanoma, and sleep apnea, presented with a 4-day history of abdominal pain associated with nausea and vomiting. She went to her PCP yesterday and was instructed to come to the ED. She denied any diarrhea or fevers. Her last meal was that morning. She reported the pain as in the right lower quadrant of the abdomen, 6/10 to 8/10, a sharp, constant pain worsened by movement and associated with nausea and vomiting. CT scan performed was positive for acute appendicitis, as well as a 2.3 cm hypodense structure in the posterior aspect of the right lobe of the liver with a Hounsfield unit of 47, which was determined by radiologist to be a hemangioma. LABORATORY DATA: Her WBCs on admission was 10.9 thousand. Her glucose was 131. Her calcium on admission was 10.6, which decreased to 9.7 on discharge. The PTH was 49. Her urine had trace leukocytes with no bacteria. HOSPITAL COURSE: She was admitted to the med/surg floor under surgical service. IV fluids and Zosyn were given. The patient was made aware of her diagnosis, and the options for treatment, as well as surgical options were discussed. The patient was taken to the OR for a laparoscopic appendectomy. Please see dictated operative report. Postoperatively the patient had hyperglycemia, which was managed with insulin coverage. She also had a brief marjorie in her sodium, which quickly recovered. She continued to receive IV antibiotics while she was in the hospital due to her immunocompromised state. Her diet was advanced, pain was well controlled, and she was sent home on postop day #2. DISCHARGE MEDICATIONS This patient was discharged on: 1. Bancroft 5/325 at 1 tablet orally q.6 hours p.r.n. pain #20. 2. Zofran 8 mg orally q.8 hours as needed for nausea and vomiting #12. 3. Bactrim DS 800/160 at 1 pill orally every 12 hours #20. 4. Docusate sodium 250 mg capsule twice daily orally as needed for constipation #30. DISCHARGE INSTRUCTIONS The patient was instructed to: 1. Resume her diet, keep it a diabetic diet. 2. She had no activity restrictions, it was activity as tolerated, but she was also instructed not to lift more than 20 pounds. 3. There were no shower restrictions. 4. Driving restrictions only if she was taking the narcotics. 5. She has full weightbearing status. 6. She was instructed to restart all her home medications. 7. She was instructed to ambulate 30 minutes 3 times daily. 8. Continue using her incentive spirometer 3 times daily. 9. Do not drive, operate heavy machinery, or sign of documents on narcotic pain medication. 10. Take Motrin or Tylenol for pain every 6 hours instead of the narcotic pain medication. 11. Shower with the dressing on, and to leave the umbilical dressing on for 2 days, and then she may remove it, and to not touch the Steri-Strips underneath; she was instructed that they will fall off on their own. 12. She was instructed that if the wound develops redness or discharge, call me for further instructions, as well as to call me if constipation lasts more than 48 hours. 13. She was instructed if severe abdominal pain returns, or if she develops fevers, to return to the ER for evaluation. 14. She was instructed to call 19/12 with any questions. 15. She was instructed to follow up with her primary care doctor within 1 week, and to follow up with me within 1 week. Phone numbers were given. A work note was also given. CODE STATUS: FULL CODE. JOB #: [id number] EXT JOB #:[id number] [facility]
== END 2016-11-12 11:14 | disposition home or self-care (01) | DRG 339 ==
LOC: ED 13:37 → MS 17:00
PROVIDERS: ADMIT Surgery; ATTEND Surgery
PROC: 0DTJ4ZZ Resection of Appendix, Percutaneous Endoscopic Approach (ICD-10-PCS; principal; 2016-11-10 17:00)
DX: K35.3 Acute appendicitis with localized peritonitis (principal); E87.1 Hypo-osmolality and hyponatremia; I10 Essential (primary) hypertension; E11.65 Type 2 diabetes mellitus with hyperglycemia; K21.9 Gastro-esophageal reflux disease without esophagitis; E78.00 Pure hypercholesterolemia, unspecified; G47.30 Sleep apnea, unspecified; C43.9 Malignant melanoma of skin, unspecified; Z85.850 Personal history of malignant neoplasm of thyroid; Z79.51 Long term (current) use of inhaled steroids; Z79.84 Long term (current) use of oral hypoglycemic drugs; Z79.899 Other long term (current) drug therapy
CPT/HCPCS: 36415; 74177; 80048; 80053; 81001; 81003; 83036; 83690; 83970; 85025; 85610; 85730; 86850; 86900; 86901; 87086; 88304; 93005; 93010; 96374; 96375; 99283; 99285

== ENCOUNTER 2017-02-17 15:20 | Outpatient (CLI) | payer OTHER ==
--- NOTE | 2017-02-20 11:44 | DEXA Report ---
DEXA SCAN: 02/17/2017 CLINICAL INDICATION: Postmenopausal. TECHNIQUE: Dual energy x-ray absorptiometry (DXA) was performed on a [employer] system. Regions measured are the AP spine, femoral neck, and, if needed, forearm. COMPARISON: None. In accordance with the International Society for Clinical Densitometry (ISCD) guidelines, data from previous exams may be reanalyzed using current recommendations and techniques. This is done to allow a more accurate basis for comparison with the current study. FINDINGS The data for the lumbar spine is as follows: REGION BMD (g/cm/cm) T-SCORE Z-SCORE L1 1.211 0.7 1.4 L2 1.196 0.0 0.7 L3 1.519 2.7 3.3 L4 1.568 3.1 3.8 TOTAL 1.307 1.1 1.8 NOTE: All evaluable vertebrae are used for classification. The data for the hip is as follows: REGION BMD (g/cm/cm) T-SCORE Z-SCORE Neck 1.024 -0.1 0.8 TOTAL 0.992 -0.1 0.4 NOTE: The femoral neck or total proximal femur, whichever is lowest, is used for classification. IMPRESSION: THE WHO CLASSIFICATION BASED ON THE INTERNATIONAL REFERENCE STANDARD IS NORMAL. THE FRACTURE RISK IS NOT INCREASED. RECOMMENDATION: Patients with diagnosis of osteoporosis or osteopenia should have regular bone mineral density assessment. For those eligible for Medicare, routine testing is allowed once every 2 years. Testing frequency can be increased for patients who have rapidly progressing disease or for those who are receiving medical therapy to restore bone mass. COMMENT: World Health Organization (WHO) definitions for osteoporosis and osteopenia: NORMAL BMD: T-score at -1.0 or higher, fracture risk is low. OSTEOPENIA BMD: T-score between -1.0 and -2.5, fracture risk is increased. OSTEOPOROSIS BMD: T-score at -2.5 or lower, fracture risk high. National Osteoporosis Foundation recommends: 1. Obtain adequate dietary calcium (at least 1200 mg per day) and vitamin D (400 -800 international units per day). 2. Participate, as appropriate, in regular weightbearing and muscle- strengthening exercise. 3. Avoid tobacco use and reduce alcohol and caffeine intake. 4. For more detailed information see the website at www.NOF.org. MTDD
== END 2017-02-17 15:21 | disposition home or self-care (01) ==
LOC: DI 15:20
PROVIDERS: ATTEND Physician Assistant
DX: N95.8 Other specified menopausal and perimenopausal disorders (principal)
CPT/HCPCS: 77080

== ENCOUNTER 2017-03-07 14:27 | Outpatient (CLI) | payer OTHER ==
--- NOTE | 2017-03-09 17:25 | Mammography Report ---
DIGITAL SCREENING MAMMOGRAM: 03/07/2017 CLINICAL INDICATION: A 66-year-old for screening. COMPARISON: 02/2016, 02/2015, 01/2014, 12/2012, 12/2011, 04/2010. TECHNIQUE: Routine CC and MLO projections were obtained of the breasts. FINDINGS: Scattered fibroglandular tissue is present within the breasts. There are no dominant mass es, suspicious microcalcifications, or secondary signs of malignancy. In comparison to the previous studies, there are no significant changes. ASSESSMENT: NO MAMMOGRAPHIC EVIDENCE OF MALIGNANCY. NO SIGNIFICANT INTERVAL CHANGES. RECOMMENDATION: Screening mammography is recommended annually. BIRADS category 1 - negative. STANDARD QUALIFYING STATEMENTS 1. This examination was reviewed with the aid of Computed-Aided Detection (CAD). 2. A negative or benign imaging report should not delay biopsy if clinically suspicious findings are present. Consider surgical consultation if warranted. More than 5% of cancers are not identified b y imaging. 3. Dense breasts may obscure an underlying neoplasm. JOB #: [id number] EXT JOB #:[id number]
== END 2017-03-07 14:28 | disposition home or self-care (01) ==
LOC: DI.S 14:27
PROVIDERS: ATTEND Physician Assistant
DX: Z12.31 Encounter for screening mammogram for malignant neoplasm of breast (principal)
CPT/HCPCS: 77067

== ENCOUNTER 2017-03-13 14:52 | Outpatient (CLI) | payer OTHER | END 2017-03-13 14:53 | disposition home or self-care (01) | LOC: SC 14:52 | PROVIDERS: ATTEND Internal Medicine Pulmonary Disease | DX: G47.33 Obstructive sleep apnea (adult) (pediatric) (principal) | CPT/HCPCS: 99203; 99212 ==

== ENCOUNTER 2018-04-11 14:45 | Outpatient (CLI) | payer OTHER ==
--- NOTE | 2018-04-13 12:59 | Mammography Report ---
Reason: SCREENING MAMMO Procedure Date: 04/11/2018 Accession Number: [id number] / [id number] Procedure: COLIN - Screening Mammo w/Oliver CPT Code: FULL RESULT: EXAM: Screening Mammo w/Oliver DATE: 04/11/2018 3:54 PM CLINICAL HISTORY: 67-year-old female with history of early menses for screening. TECHNIQUE: Bilateral CC and MLO views were obtained. COMPARISON: 04/11/2018, 03/07/2017, 03/07/2016, 03/04/2015. FINDINGS: The breasts demonstrate scattered fibroglandular densities bilaterally. There are coarse typically benign calcifications bilaterally. No suspicious masses, clustered microcalcifications, or regions of architectural distortion are identified. IMPRESSION: Benign findings RECOMMENDATION: Routine annual screening unless otherwise clinically indicated. BIRADS CATEGORY 2: Benign findings STANDARD QUALIFYING STATEMENTS: 1. This examination was not reviewed with the aid of Computer-Aided Detection (CAD). 2. A negative or benign imaging report should not delay biopsy if clinically suspicious findings are present. Consider surgical consultation if warranted. More than 5% of cancers are not identified by imaging. 3. Dense breasts may obscure an underlying neoplasm. 4. This examination was reviewed with the aid of 3D breast imaging (tomosynthesis).
== END 2018-04-11 14:46 | disposition home or self-care (01) ==
LOC: DI 14:45
PROVIDERS: ATTEND Physician Assistant
DX: Z12.31 Encounter for screening mammogram for malignant neoplasm of breast (principal)
CPT/HCPCS: 77063; 77067

== ENCOUNTER 2018-06-12 15:54 | Outpatient (CLI) | payer OTHER, MEDICARE ==
--- NOTE | 2018-06-13 17:09 | XRAY Report ---
Reason: INJURY OF RIGHT WRIST, HAND, FINGERS Procedure Date: 06/12/2018 Accession Number: [id number] / [id number] Procedure: XR - Hand 3 View RT CPT Code: FULL RESULT: EXAM: RIGHT HAND RADIOGRAPHY EXAM DATE: 06/12/2018 04:08 PM. CLINICAL HISTORY: Injury of right wrist, hand, fingers. COMPARISON: None. TECHNIQUE: 4 views. FINDINGS: Bones: Normal. No fractures or bone lesions. Joints: Mild to moderate diffuse degenerative changes throughout the fingers. No subluxations. Soft Tissues: Normal. No soft tissue swelling. IMPRESSION: 1. No right hand fracture or malalignment seen. 2. Mild to moderate diffuse degenerative changes throughout the fingers. RADIA
== END 2018-06-12 15:55 | disposition home or self-care (01) ==
LOC: DI 15:54
PROVIDERS: ATTEND Physician Assistant
DX: S69.91XA Unspecified injury of right wrist, hand and finger(s), initial encounter (principal); M19.041 Primary osteoarthritis, right hand

== ENCOUNTER 2018-10-24 11:15 | Emergency (ER) | payer OTHER, MEDICARE ==
[2018-10-24 11:21] VITALS: BP 174/86
--- NOTE | 2018-10-24 13:18 | ED Physician Documentation ---
History of Present Illness - Stated complaint Stated Complaint: LEG PX - Chief complaint Chief Complaint: General - History obtained from History obtained from: Patient - History of Present Illness Timing: How many days ago (5 days) - Additonal information Additional information: This is a 68-year-old woman who presents with complaints that she was at work 5 days ago when a wood pallet fell hitting the back of her right lower leg across the Achilles tendon. It has been sore and stinging since then and she is concerned that it may be getting infected. She is diabetic but she has not checked her blood sugar since this started. She takes metformin.It does hurt when she puts weight down on the foot. She is been nauseous and vomited yesterday. No fever. She is been cleaning this with just soap and water applying a bandage on it with Neosporin and continued working. Her last tetanus vaccine was more than 5 years ago. Review of Systems Constitutional: denies: Fever Musculoskeletal: reports: Extremity pain (Right lower leg over the Achilles where there is a wound.) Neurologic: denies: Near syncope Endocrine: reports: Other (She is diabetic but has not checked her blood sugar since the injury.) PD PAST MEDICAL HISTORY - Past Medical History Cardiovascular: Hypertension, High cholesterol Respiratory: None Endocrine/Autoimmune: Type 2 diabetes GI: GERD, Other : Incontinence, Frequency HEENT: None Psych: None Musculoskeletal: Chronic back pain Derm: Psoriasis, Other - Past Surgical History General: Cholecystectomy Ortho: Spine surgery, Other /[employer]: Tubal ligation, Hysterectomy Derm: Skin cancer surgery - Present Medications Home Medications: Ambulatory Orders Medication Instructions Recorded Confirmed RX: Carvedilol 12.5 mg PO BID 11/19/13 11/11/16 RX: Enalapril [Vasotec] 10 mg PO BID 11/19/13 11/11/16 RX: Hydrochlorothiazide 25 mg PO DAILY 11/19/13 11/11/16 RX: Levothyroxine [Synthroid] 200 mcg PO DAILY 11/19/13 11/11/16 RX: metFORMIN [Glucophage] 500 mg PO QDBREAKFAST 11/19/13 11/11/16 RX: Ascorbic Acid [Vitamin C] 1,000 mg PO DAILY 11/10/16 11/11/16 RX: Aspirin 325 mg PO DAILY 11/10/16 11/11/16 RX: Atorvastatin [Lipitor] 10 mg PO QPM 11/10/16 11/11/16 RX: Cholecalciferol (Vitamin D3) 2,000 unit PO DAILY 11/10/16 11/11/16 [Vitamin D3] RX: raNITIdine HCl [Ranitidine HCl] 300 mg PO BID 11/10/16 11/11/16 RX: Calcium Carbonate [Tums 1,000 mg PO DAILY 11/11/16 11/11/16 (Calcium Carbonate 500mg)] RX: Dexlansoprazole [Dexilant] 60 mg PO DAILY 11/11/16 11/11/16 RX: Metformin HCl 1,000 mg PO QDDINNER 11/11/16 11/11/16 RX: Multivitamin [Theragran] 1 tab PO DAILY 11/11/16 11/11/16 RX: Derby-3 Acid Ethyl Esters 1 gm PO DAILY 11/11/16 11/11/16 [Lovaza] Docusate Sodium 250Mg Capsule 250 mg PO BID PRN #30 capsule 11/12/16 [Colace 250Mg Capsule] Hydrocodone/Acetaminophen [Vicodin 1 each PO Q6HR PRN #20 tablet 11/12/16 5-300 mg Tablet] Ondansetron HCl [Zofran] 8 mg PO Q8HR PRN #12 tablet 11/12/16 Sulfamethox/Trimeth 800/160 1 each PO BID #20 tablet 11/12/16 [Bactrim Ds 800/160] Cephalexin [Keflex] 500 mg PO Q6H #28 capsule 10/24/18 - Allergies Allergies/Adverse Reactions: Allergies Allergy/AdvReac Type Severity Reaction Status Date / Time betamethasone Allergy Severe Respiratory Verified 10/24/18 11:21 droperidol [From Inapsine] Allergy Severe Respiratory Verified 10/24/18 11:21 venlafaxine HCl * Allergy Severe Respiratory Verified 10/24/18 11:21 [From Effexor] nabumetone [From Relafen] Allergy Intermediate Unknown Verified 10/24/18 11:21 celecoxib [From Celebrex] AdvReac Intermediate Unknown Verified 10/24/18 11:21 Urfbgbq-Uey-Pyl Reductase AdvReac Intermediate Unknown Verified 10/24/18 11:21 Inhibitor - Social History Does the pt smoke?: No Smoking Status: Never smoker PD ED PE NORMAL - General General: Alert and oriented X 3 - HEENT HEENT: Atraumatic - Respiratory Respiratory: No respiratory distress - Neuro Neuro: Alert and oriented X 3 PD ED PE EXPANDED - Extremities Extremities: Right leg ROMAN LE visual: 1 - rash (Erythema), abrasion, swelling, tenderness Results - Vitals Vitals: Vital Signs - 24 hr 10/24/18 11:16 Temperature 36.6 C Heart Rate 81 Respiratory 14 Rate Blood Pressure 174/86 H O2 Saturation 99 Oxygen O2 Source Room air PD MEDICAL DECISION MAKING - ED course Complexity details: d/w patient ED course: Patient will be placed on Keflex 500mg4 times a day. She is been taking Motrin for her low back pain and thinks that may be why she has an upset stomach. We are going to try Aleve and have her stop the ibuprofen.She is going on use her breaks at work to raise her leg and help reduce the edema. She also elevate the leg at night.She is not placed on any specific work restrictions. Continue to cleanse the wound and apply antibiotic ointment. Recheck if not improving. Departure - Departure Disposition: 01 Home, Self Care Clinical Impression: Abrasion Cellulitis Qualifiers: Site of cellulitis: extremity Site of cellulitis of extremity: lower extremity Laterality: right Qualified Code(s): L03.115 - Cellulitis of right lower limb Condition: Good Instructions: ED Abrasion, ED Infec Skin Cellulitis Follow-Up: Esperanza Richardson PA [Primary Care Provider] - Within 3 Days (Follow-up if not improving.) Prescriptions: Cephalexin [Keflex] 500 mg PO Q6H #28 capsule Comments: Take the Keflex 4 times a day. I would discontinue the ibuprofen and start Aleve 1 tablet twice a day.Continue to clean the wound with mild soap and water and apply antibiotic ointment and keep it covered. Elevate the leg as much as possible to reduce the swelling. If you are not seeing improvement in 48 hours this should be rechecked. Discharge Date/Time: 10/24/18 14:05
[2018-10-24] MEDS ORDERED: TETANUS/DIPHTHERIA/PERTUSSIS 0.5 ML SYRINGE IM ONE (13:46)
== END 2018-10-24 14:05 | disposition home or self-care (01) ==
LOC: ED 11:15
DX: S80.811A Abrasion, right lower leg, initial encounter (principal); L03.115 Cellulitis of right lower limb; W20.8XXA Other cause of strike by thrown, projected or falling object, initial encounter; Y99.0 Civilian activity done for income or pay; Z23 Encounter for immunization; M54.5 Low back pain; E11.9 Type 2 diabetes mellitus without complications; Z79.84 Long term (current) use of oral hypoglycemic drugs; I10 Essential (primary) hypertension; Z79.82 Long term (current) use of aspirin
CPT/HCPCS: 1040M; 90471; 90715; 99283

== ENCOUNTER 2018-11-09 07:01 | Outpatient (CLI) | payer OTHER, MEDICARE ==
[2018-11-09 09:51] LABS: BILIRUBIN,URINE NEGATIVE (NEGATIVE); GLUCOSE, URINE (UA) NEGATIVE (NEGATIVE); KETONES,URINE (UA) NEGATIVE (NEGATIVE); LEUKOCYTE ESTERASE, URINE NEGATIVE (NEGATIVE); NITRITE,URINE NEGATIVE (NEGATIVE); OCCULT BLOOD,URINE NEGATIVE (NEGATIVE); PROTEIN,URINE NEGATIVE (NEGATIVE); UROBILINOGEN,URINE 0.2 (NORMAL) E.U./dL (NORMAL)
[2018-11-09 09:54] LABS: CLARITY,URINE CLEAR (CLEAR)
[2018-11-09 10:00] LABS: VBG PH 7.367 (7.31-7.41)
[2018-11-09 10:05] LABS: CREATININE 0.6 mg/dL (0.4-1.0)
[2018-11-09 10:15] LABS: BASOPHILS # (AUTO) 0.1 10^3/uL (0.0-0.1); BASOPHILS % (AUTO) 1.6 %; EOSINOPHILS # (AUTO) 0.1 10^3/uL (0.0-0.7); EOSINOPHILS % (AUTO) 1.7 %; HGB - HEMOGLOBIN 13.8 g/dL (12.0-16.0); LYMPHOCYTES # (AUTO) 1.9 10^3/uL (1.5-3.5); LYMPHOCYTES % (AUTO) 32.1 %; MEAN CORPUSCULAR HEMOGLOBIN 28.7 pg (27.0-31.0); MEAN CORPUSCULAR HGB CONC 33.7 g/dL (32.0-36.0); MEAN PLATELET VOLUME 9.1 fL (7.9-10.8); MONOCYTES # (AUTO) 0.4 10^3/uL (0.0-1.0); MONOCYTES % (AUTO) 6.3 %; NEUTROPHILS # (AUTO) 3.4 10^3/uL (1.5-6.6); NEUTROPHILS % (AUTO) 58.3 %; PLT - PLATELET COUNT 244 10^3/uL (130-450); RED BLOOD COUNT 4.81 10^6/uL (4.20-5.40); RED CELL DISTRIBUTION WIDTH 13.6 % (12.0-15.0); WHITE BLOOD COUNT 5.8 x10^3/uL (4.8-10.8)
[2018-11-09 19:16] LABS: HB2 TOTAL 14.8 g/dL; HEMOGLOBIN A1C 0.53 g/dL; HEMOGLOBIN A1C % 5.4 % (4.6-6.2)
== END 2018-11-09 07:02 | disposition home or self-care (01) ==
LOC: RT 07:01
PROVIDERS: ATTEND Physician Assistant
DX: R07.9 Chest pain, unspecified (principal); E83.52 Hypercalcemia; E11.9 Type 2 diabetes mellitus without complications; R11.2 Nausea with vomiting, unspecified
CPT/HCPCS: 36415; 80048; 81003; 81599; 82330; 83036; 83970; 84484; 85025; 93005

== ENCOUNTER 2018-12-07 19:53 | Emergency (ER) | payer OTHER, MEDICARE ==
[2018-12-07] MEDS ORDERED: HYDROcod/ACETAM 5/325 MG TABLET PO STA (20:30)
--- NOTE | 2018-12-07 20:35 | ED Physician Documentation ---
History of Present Illness - Stated complaint Stated Complaint: GLF/FACE PX - Chief complaint Chief Complaint: Laceration - History obtained from History obtained from: Patient, Family - History of Present Illness Timing: Today, How many hours ago (1) Pain level max: 7 Pain level now: 6 Improved by: Rest Worsened by: Movement - Additonal information Additional information: 68-year-old female was in her garden when she tripped fell landing head first onto bricks. Her knee and the remainder of her body landed on the grass. She is complaining of facial pain, headache, right pinky pain and left knee pain. She is ambulatory since the event. No neck or back pain. No neurological deficits. She is not on blood thinners. Review of Systems Ten Systems: 10 systems reviewed and negative Constitutional: denies: Fever, Chills Ears: denies: Ear pain Nose: denies: Rhinorrhea / runny nose, Congestion GI: denies: Vomiting Skin: denies: Rash Musculoskeletal: denies: Neck pain, Back pain Neurologic: denies: Seizure, Confused, Altered mental status, LOC PD PAST MEDICAL HISTORY - Past Medical History Past Medical History: Yes Cardiovascular: Hypertension, High cholesterol Respiratory: None Endocrine/Autoimmune: Type 2 diabetes GI: GERD, Other : Incontinence, Frequency HEENT: None Psych: None Musculoskeletal: Chronic back pain Derm: Psoriasis, Other - Past Surgical History Past Surgical History: Yes General: Cholecystectomy Ortho: Spine surgery, Other /SPOUT TENDER: Tubal ligation, Hysterectomy Derm: Skin cancer surgery - Present Medications Home Medications: Ambulatory Orders Medication Instructions Recorded Confirmed Carvedilol 12.5 mg PO BID 11/19/13 11/11/16 Enalapril [Vasotec] 10 mg PO BID 11/19/13 11/11/16 Hydrochlorothiazide 25 mg PO DAILY 11/19/13 11/11/16 Levothyroxine [Synthroid] 200 mcg PO DAILY 11/19/13 11/11/16 metFORMIN [Glucophage] 500 mg PO QDBREAKFAST 11/19/13 11/11/16 Ascorbic Acid [Vitamin C] 1,000 mg PO DAILY 11/10/16 11/11/16 Aspirin 325 mg PO DAILY 11/10/16 11/11/16 Atorvastatin [Lipitor] 10 mg PO QPM 11/10/16 11/11/16 Cholecalciferol (Vitamin D3) 2,000 unit PO DAILY 11/10/16 11/11/16 [Vitamin D3] raNITIdine HCl [Ranitidine HCl] 300 mg PO BID 11/10/16 11/11/16 Calcium Carbonate [Tums (Calcium 1,000 mg PO DAILY 11/11/16 11/11/16 Carbonate 500mg)] Dexlansoprazole [Dexilant] 60 mg PO DAILY 11/11/16 11/11/16 Metformin HCl 1,000 mg PO QDDINNER 11/11/16 11/11/16 Multivitamin [Theragran] 1 tab PO DAILY 11/11/16 11/11/16 [place]-3 Acid Ethyl Esters [Lovaza] 1 gm PO DAILY 11/11/16 11/11/16 Docusate Sodium 250Mg Capsule 250 mg PO BID PRN #30 capsule 11/12/16 [Colace 250Mg Capsule] Hydrocodone/Acetaminophen [Vicodin 1 each PO Q6HR PRN #20 tablet 11/12/16 5-300 mg Tablet] Ondansetron HCl [Zofran] 8 mg PO Q8HR PRN #12 tablet 11/12/16 Sulfamethox/Trimeth 800/160 1 each PO BID #20 tablet 11/12/16 [Bactrim Ds 800/160] Cephalexin [Keflex] 500 mg PO Q6H #28 capsule 10/24/18 Hydrocodone/Acetaminophen 1 - 2 each PO Q6H PRN #14 tablet 12/07/18 [Hydrocodon-Acetaminophen 5-325] - Allergies Allergies/Adverse Reactions: Allergies Allergy/AdvReac Type Severity Reaction Status Date / Time betamethasone Allergy Severe Respiratory Verified 12/07/18 20:00 droperidol [From Inapsine] Allergy Severe Respiratory Verified 12/07/18 20:00 venlafaxine HCl * Allergy Severe Respiratory Verified 12/07/18 20:00 [From Effexor] nabumetone [From Relafen] Allergy Intermediate Unknown Verified 12/07/18 20:00 celecoxib [From Celebrex] AdvReac Intermediate Unknown Verified 12/07/18 20:00 Hmnapck-Gyd-Uew Reductase AdvReac Intermediate Unknown Verified 12/07/18 20:00 Inhibitor - Social History Does the pt smoke?: No Smoking Status: Never smoker Does the pt drink ETOH?: No Does the pt have substance abuse?: No - Immunizations Immunizations are current?: Yes Immunizations: TDAP current <10years (2019) PD ED PE NORMAL - Vitals Vital signs reviewed: Yes - General General: Alert and oriented X 3, No acute distress - HEENT HEENT: PERRL, Ears normal, Moist mucous membranes, Pharynx benign, Other (Large abrasion over the bridge of the nose. Also a large hematoma to the left forehead. Diffuse tenderness about the left orbit.) - Neck Neck: Supple, no meningeal sign, No bony TTP - Cardiac Cardiac: RRR, Strong equal pulses - Respiratory Respiratory: No respiratory distress, Clear bilaterally - Abdomen Abdomen: Soft, Non tender, Non distended - Back Back: No spinal TTP - Derm Derm: Warm and dry - Extremities Extremities: Other (Abrasion to the left knee. No bony tenderness. Full range of motion without pain. No tenderness over palpation of the right fifth digit. Full range of motion. 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, No motor deficit, No sensory deficit, Normal speech Eye Opening: Spontaneous Motor: Obeys Commands Verbal: Oriented GCS Score: 15 - Psych Psych: Normal mood, Normal affect Results - Vitals Vitals: Vital Signs - 24 hr 12/07/18 12/07/18 19:57 22:04 Temperature 36.1 C L 36.9 C Heart Rate 86 71 Respiratory 18 16 Rate Blood Pressure 179/96 H 163/73 H O2 Saturation 100 98 Oxygen O2 Source Room air - Rads (name of study) head CT Radiology: Prelim report reviewed, EMP read contemporaneously, See rad report ( no acute findings) cervical spine CT Radiology: Prelim report reviewed, EMP read contemporaneously, See rad report (no acute findings) PD MEDICAL DECISION MAKING - ED course Complexity details: reviewed results, re-evaluated patient, considered differential, d/w patient, d/w family ED course: No acute findings on head CT or cervical spine CT. Wounds were cleansed. Pain controlled. No other acute injuries. Normal vision. No hyphemas. Patient counseled regarding signs and symptoms for which I believe and urgent re- evaluation would be necessary. Patient with good understanding of and agreement to plan and is comfortable going home at this time This document was made in part using voice recognition software. While efforts are made to proofread this document, sound alike and grammatical errors may occur. No neck or back pain. Departure - Departure Disposition: 01 Home, Self Care Clinical Impression: Closed head injury Qualifiers: Encounter type: initial encounter Qualified Code(s): S09.90XA - Unspecified injury of head, initial encounter Facial abrasion Qualifiers: Encounter type: initial encounter Qualified Code(s): S00.81XA - Abrasion of other part of head, initial encounter Condition: Good Instructions: ED Abrasion, ED Head Injury Closed Follow-Up: Esperanza Richardson PA [Primary Care Provider] - Within 1 week Prescriptions: Hydrocodone/Acetaminophen [Hydrocodon-Acetaminophen 5-325] 1 - 2 each PO Q6H PRN #14 tablet PRN Reason: pain Comments: Return if you worsen. Thankfully there are no broken bones on your CT scan and there is no bleeding inside your skull. You will be sore for the next few days. Keep the wound clean. you can use Motrin or Tylenol as needed for pain. Use the hydrocodone for any breakthrough pain. Do not drink alcohol or drive while on narcotic pain medicine. Note that many narcotic pain relievers also contain tylenol/acetaminophen. Please ensure that your total dose of acetaminophen from all sources does not exceed 3 grams (3000mg) per day. You may constipated on this medication, take a stool softener such as "Colace" twice a day while you are on it. Also recommend a pzas-ysi-vqiojim laxative such as senna or MiraLAX any day that you do not have a bowel movement. If you received narcotic pain medication in the emergency department, do not drive or operate machinery for the next 24 hours. Discharge Date/Time: 12/07/18 22:15
--- NOTE | 2018-12-07 21:45 | CT Report ---
Reason: fall, head injury on bricks Procedure Date: 12/07/2018 Accession Number: [id number] / [id number] Procedure: CT - HEAD WO CPT Code: FULL RESULT: EXAM: CT HEAD EXAM DATE: 12/07/2018 09:14 PM. CLINICAL HISTORY: Fall, head injury on bricks. COMPARISON: None. TECHNIQUE: Multiaxial CT images were obtained from the foramen magnum to the vertex. Reformats: Sagittal and coronal. IV contrast: None. In accordance with CT protocol optimization, one or more of the following dose reduction techniques were utilized for this exam: automated exposure control, adjustment of mA and/or KV based on patient size, or use of iterative reconstructive technique. FINDINGS: Parenchyma: No intraparenchymal hemorrhage. No evidence of mass, midline shift, or CT findings of infarction. Flores-white differentiation is distinct. Extraaxial Spaces: Normal for age. No subdural or epidural collections identified. Ventricles: Normal in size and position. Sinuses and Orbits: Imaged paranasal sinuses, orbits, and mastoids show no significant abnormality. Bones: No evidence of fracture or calvarial defect. Other: Left forehead scalp hematoma. IMPRESSION: No acute intracranial abnormality. RADIA
--- NOTE | 2018-12-07 21:47 | CT Report ---
Reason: fall, face injury on bricks Procedure Date: 12/07/2018 Accession Number: [id number] / [id number] Procedure: CT - MAXILLOFACIAL WO CPT Code: FULL RESULT: EXAM: CT MAXILLOFACIAL WITHOUT CONTRAST EXAM DATE: 12/07/2018 09:20 PM. CLINICAL HISTORY: Fall, face injury on bricks. COMPARISONS: None. TECHNIQUE: Thin-section axial images were acquired of the face without contrast. Post-processing: Coronal and sagittal reformats. Other: None. In accordance with CT protocol optimization, one or more of the following dose reduction techniques were utilized for this exam: automated exposure control, adjustment of mA and/or KV based on patient size, or use of iterative reconstructive technique. FINDINGS: Soft Tissue: The infratemporal fossa and parapharyngeal spaces are unremarkable. Orbits: Symmetric and unremarkable. Bones: No fracture or bone lesion. Temporomandibular Joints: The temporomandibular joints are symmetric and normally located. Sinuses: Normal. No mucosal thickening or fluid levels. Other: Left forehead scalp hematoma. IMPRESSION: No evidence of maxillofacial bone fracture. RADIA
[2018-12-07 22:05] VITALS: BP 163/73
== END 2018-12-07 22:15 | disposition home or self-care (01) ==
LOC: ED 19:53
DX: S09.90XA Unspecified injury of head, initial encounter (principal); S00.31XA Abrasion of nose, initial encounter; S80.212A Abrasion, left knee, initial encounter; S00.83XA Contusion of other part of head, initial encounter; M79.644 Pain in right finger(s); W01.198A Fall on same level from slipping, tripping and stumbling with subsequent striking against other object, initial encounter; Y93.H2 Activity, gardening and landscaping; Y92.007 Garden or yard of unspecified non-institutional (private) residence as the place of occurrence of the external cause; I10 Essential (primary) hypertension; E11.9 Type 2 diabetes mellitus without complications; Z79.84 Long term (current) use of oral hypoglycemic drugs; Z79.82 Long term (current) use of aspirin
CPT/HCPCS: 70450; 70486; 99284; A9270

== ENCOUNTER 2019-04-03 14:21 | Outpatient (CLI) | payer OTHER, MEDICARE | END 2019-04-03 14:22 | disposition home or self-care (01) | LOC: DI.S 14:21 | PROVIDERS: ATTEND Physician Assistant | DX: Z53.9 Procedure and treatment not carried out, unspecified reason (principal) ==

== ENCOUNTER 2019-11-27 15:54 | Outpatient (CLI) | payer OTHER, MEDICARE ==
--- NOTE | 2019-11-27 16:42 | XRAY Report ---
PROCEDURE: Shoulder 3 View RT INDICATIONS: PAIN IN THE RIGHT SHOULDER TECHNIQUE: 3 views of the shoulder were acquired. COMPARISON: None. FINDINGS: Bones: No fractures or dislocations. No suspicious bony lesions. Visualized ribs appear intact. S evere acromioclavicular degenerative narrowing is present. There is mild inferior subluxation at the glenohumeral joint. Glenohumeral narrowing is also noted. Soft tissues: No suspicious soft tissue calcifications. IMPRESSION: Severe acromioclavicular as well as mild to moderate clinical humeral degenerative narro wing. Reviewed by: Robina Youngblood MD on 11/27/2019 4:41 PM PDT Approved by: Robina Youngblood MD on 11/27/2019 4:41 PM PDT Station ID: [id number]
== END 2019-11-27 15:55 | disposition home or self-care (01) ==
LOC: DI 15:54
PROVIDERS: ATTEND Nurse Practitioner Family
DX: M19.011 Primary osteoarthritis, right shoulder (principal)

== ENCOUNTER 2019-11-28 07:00 | Outpatient (CLI) | payer OTHER, MEDICARE ==
[2019-12-02 19:44] LABS: CANDIDA GROUP DNA NEGATIVE (NEGATIVE); CANDIDA KRUSEI DNA NEGATIVE (NEGATIVE); TRICHOMONAS VAGINALIS DNA NEGATIVE (NEGATIVE)
== END 2019-11-28 23:59 | disposition home or self-care (01) ==
LOC: LAB.R 07:00
PROVIDERS: ATTEND Obstetrics & Gynecology
DX: N76.0 Acute vaginitis (principal)
CPT/HCPCS: 87661; 87801

== ENCOUNTER 2020-09-21 09:14 | Outpatient (CLI) | payer OTHER, MEDICARE ==
--- NOTE | 2020-09-22 13:23 | Mammography Report ---
BILATERAL DIGITAL SCREENING MAMMOGRAM 3D/2D: 09/21/2020 CLINICAL: Family history of breast cancer. Routine screening. Comparison is made to exams dated: 04/03/2019 mammogram, 04/11/2018 mammogram, 03/07/2017 mammogram, and 03/07/2016 mammogram - [facility]. The tissue of both breasts is predominantly fatty. No significant masses, calcifications, or other findings are seen in either breast. There has been no significant interval change. IMPRESSION: NEGATIVE There is no mammographic evidence of malignancy. A 1 year screening mammogram is recommended. This exam was interpreted at Station ID: [id number]. NOTE: For mammograms, a report in lay terms will be sent to the patient. Approximately 15% of breast malignancies will not be visualized mammographically. In the management of a palpable breast mass, a negative mammogram must not discourage biopsy of a clinically suspicious lesion. Electronically Signed By: Shirley storm/penrad:09/21/2020 14:11:50 ACR BI-RADS Category 1: Negative 3341F PARENCHYMAL PATTERN: (F) - The breast(s) demonstrate(s) diffuse fatty replacement. BI-RADS CATEGORY: (1) - 1 RECOMMENDATION: (ANNUAL) - Recommend routine annual screening mammography. [id number] 1 year screening LATERALITY: (B)
== END 2020-09-21 09:15 | disposition home or self-care (01) ==
LOC: DI.S 09:14
PROVIDERS: ATTEND Internal Medicine
DX: Z12.31 Encounter for screening mammogram for malignant neoplasm of breast (principal); Z80.3 Family history of malignant neoplasm of breast

== ENCOUNTER 2021-05-31 08:00 | Outpatient (CLI) | payer OTHER, MEDICARE ==
[2021-05-31 23:54] LABS: THYROID STIMULATING HORMONE 16.89 uIU/mL (0.34-5.60)
[2021-06-02 23:06] LABS: ALPHA 1 GLOBULIN 0.3 g/dL (0.2-0.3); ALPHA 2 GLOBULIN 0.8 g/dL (0.5-0.9); BETA 1 GLOBULIN 0.5 g/dL (0.4-0.6); BETA 2 GLOBULIN 0.2 g/dL (0.2-0.5); GAMMA GLOBULIN 0.5 g/dL (0.8-1.7)
== END 2021-05-31 23:59 ==
LOC: LAB 08:00
PROVIDERS: ATTEND Internal Medicine
DX: E83.52 Hypercalcemia (principal)
CPT/HCPCS: 36415; 82306; 83970; 84155; 84165; 84443

== ENCOUNTER 2021-07-27 08:21 | Outpatient (CLI) | payer OTHER, MEDICARE | END 2021-07-27 08:22 | disposition home or self-care (01) | LOC: LAB.R 08:21 | PROVIDERS: ATTEND Internal Medicine | DX: E83.52 Hypercalcemia (principal); E03.9 Hypothyroidism, unspecified | CPT/HCPCS: 82310; 84443 ==

== ENCOUNTER 2021-08-10 00:02 | Outpatient (CLI) | payer OTHER, MEDICARE | END 2021-08-10 00:03 | disposition short-term general hospital (02) | LOC: EMS 00:02 | DX: R07.89 Other chest pain (principal); R00.2 Palpitations | CPT/HCPCS: A0425; A0427 ==

== ENCOUNTER 2021-09-26 08:00 | Outpatient (CLI) | payer OTHER, MEDICARE ==
--- NOTE | 2021-09-27 14:42 | Mammography Report ---
BILATERAL DIGITAL SCREENING MAMMOGRAM 3D/2D: 09/26/2021 CLINICAL: Routine screening. Comparison is made to exams dated: 09/21/2020 mammogram, 04/03/2019 mammogram, 04/11/2018 mammogram, a nd 03/07/2017 mammogram - [facility]. The tissue of both breasts is predominantly fatty. No significant masses, calcifications, or other findings are seen in either breast. There has been no significant interval change. IMPRESSION: NEGATIVE There is no mammographic evidence of malignancy. A 1 year screening mammogram is recommended. This exam was interpreted at Station ID: [id number]. NOTE: For mammograms, a report in lay terms will be sent to the patient. Approximately 15% of breast malignancies will not be visualized mammographically. In the management of a palpable breast mass, a negative mammogram must not discourage biopsy of a clinically suspicious lesion. Electronically Signed By: Frank Trejo M.D., jr/lj:09/27/2021 08:14:43 ACR BI-RADS Category 1: Negative 3341F PARENCHYMAL PATTERN: (F) - The breast(s) demonstrate(s) diffuse fatty replacement. BI-RADS CATEGORY: (1) - 1 RECOMMENDATION: (ANNUAL) - Recommend routine annual screening mammography. [id number] 1 year screening LATERALITY: (B)
== END 2021-09-26 23:59 | disposition home or self-care (01) ==
LOC: DI.S 08:00
PROVIDERS: ATTEND Internal Medicine
DX: Z12.31 Encounter for screening mammogram for malignant neoplasm of breast (principal)

== ENCOUNTER 2022-05-02 08:00 | Outpatient (CLI) | payer OTHER, MEDICARE ==
[2022-05-02 16:24] LABS: BASOPHILS # (AUTO) 0.1 10^3/uL (0.0-0.1); BASOPHILS % (AUTO) 1.6 %; EOSINOPHILS # (AUTO) 0.2 10^3/uL (0.0-0.7); EOSINOPHILS % (AUTO) 3.7 %; HCT - HEMATOCRIT 41.5 % (37.0-47.0); HGB - HEMOGLOBIN 13.2 g/dL (12.0-16.0); LYMPHOCYTES # (AUTO) 1.6 10^3/uL (1.5-3.5); MEAN CORPUSCULAR HGB CONC 31.8 g/dL (32.0-36.0); MEAN CORPUSCULAR VOLUME 84.9 fL (81.0-99.0); MEAN PLATELET VOLUME 11.1 fL (7.9-10.8); MONOCYTES # (AUTO) 0.4 10^3/uL (0.0-1.0); MONOCYTES % (AUTO) 6.8 %; NEUTROPHILS # (AUTO) 2.8 10^3/uL (1.5-6.6); NEUTROPHILS % (AUTO) 55.1 %; PLT - PLATELET COUNT 289 10^3/uL (130-450); RED BLOOD COUNT 4.89 10^6/uL (4.20-5.40); RED CELL DISTRIBUTION WIDTH 13.2 % (12.0-15.0); WHITE BLOOD COUNT 5.1 x10^3/uL (4.8-10.8)
[2022-05-02 16:40] LABS: CREATININE,URINE 41.2 mg/dL; MICROALBUM/CREATININE RATIO,UR 7.3 ug/mg (<30.0); MICROALBUMIN,URINE 0.3 mg/dL (0-300.0)
[2022-05-02 16:49] LABS: ALBUMIN 3.9 g/dL (3.2-5.5); ALBUMIN/GLOBULIN RATIO 1.3 (1.0-2.2); ALKALINE PHOSPHATASE 82 IU/L (42-121); ALT ALANINE AMINOTRANSFERASE 24 IU/L (10-60); AST ASPARTATE AMINOTRANSFERASE 22 IU/L (10-42); BILIRUBIN,TOTAL 0.6 mg/dL (0.2-1.0); BUN - BLOOD UREA NITROGEN 21 mg/dL (6-20); CALCIUM 10.5 mg/dL (8.5-10.3); CARBON DIOXIDE - CO2 30 mmol/L (21-32); CHLORIDE 99 mmol/L (101-111); CHOLESTEROL 221 mg/dL; CREATININE 1.1 mg/dL (0.4-1.0); GFR - MDRD 49 (>89); GLUCOSE 126 mg/dL (70-100); HDL CHOLESTEROL 44 mg/dL; LDL CHOLESTEROL,CALCULATED 149 mg/dL; LDL/HDL RATIO 3.4 (<4.4); POTASSIUM 4.2 mmol/L (3.5-5.0); SODIUM 136 mmol/L (135-145); TRIGLYCERIDES 138 mg/dL; VLDL CHOLESTEROL 28 mg/dL
[2022-05-02 16:53] LABS: THYROID STIMULATING HORMONE 0.73 uIU/mL (0.34-5.60)
[2022-05-02 19:02] LABS: ESTIMATED AVERAGE GLUCOSE 169 mg/dL (70-100); HEMOGLOBIN A1c% 7.5 % (4.27-6.07)
[2022-05-03 04:09] LABS: HCV AB <0.1 s/co ratio (0.0-0.9)
[2022-05-03 07:11] LABS: THYROID PEROXIDASE (TPO) AB <9 IU/mL (0-34)
[2022-05-03 19:07] LABS: THYROGLOBULIN ANTIBODY <1.0 IU/mL (0.0-0.9)
== END 2022-05-02 23:59 | disposition home or self-care (01) ==
LOC: LAB.R 08:00
PROVIDERS: ATTEND Internal Medicine
DX: Z00.00 Encounter for general adult medical examination without abnormal findings (principal); E11.9 Type 2 diabetes mellitus without complications; Z86.010 Personal history of colon polyps; E83.52 Hypercalcemia; I10 Essential (primary) hypertension; K76.9 Liver disease, unspecified; C43.9 Malignant melanoma of skin, unspecified; N32.81 Overactive bladder; K27.9 Peptic ulcer, site unspecified, unspecified as acute or chronic, without hemorrhage or perforation; C64.9 Malignant neoplasm of unspecified kidney, except renal pelvis; Z11.59 Encounter for screening for other viral diseases; Z79.899 Other long term (current) drug therapy; I47.20 Ventricular tachycardia, unspecified
CPT/HCPCS: 80053; 80061; 82043; 82570; 82607; 83036; 83721; 84443; 85025; 86376; 86800; 86803

== ENCOUNTER 2022-05-13 13:39 | Outpatient (CLI) | payer OTHER, MEDICARE ==
[2022-05-18 21:07] LABS: THYROGLOBULIN ANTIBODY <1.0 IU/mL (0.0-0.9); THYROGLOBULIN BY IMA <0.1 ng/mL (1.5-38.5)
== END 2022-05-13 13:40 | disposition home or self-care (01) ==
LOC: LAB.S 13:39
PROVIDERS: ATTEND Internal Medicine
DX: Z00.00 Encounter for general adult medical examination without abnormal findings (principal); E11.9 Type 2 diabetes mellitus without complications; Z86.010 Personal history of colon polyps; E83.52 Hypercalcemia; I10 Essential (primary) hypertension; K76.9 Liver disease, unspecified; C43.9 Malignant melanoma of skin, unspecified; N32.81 Overactive bladder; K27.9 Peptic ulcer, site unspecified, unspecified as acute or chronic, without hemorrhage or perforation; C64.9 Malignant neoplasm of unspecified kidney, except renal pelvis; Z11.59 Encounter for screening for other viral diseases; Z79.899 Other long term (current) drug therapy; I47.20 Ventricular tachycardia, unspecified
CPT/HCPCS: 81599; 86800

== ENCOUNTER 2022-05-31 07:58 | Outpatient (CLI) | payer OTHER, MEDICARE ==
--- NOTE | 2022-05-31 08:57 | DEXA Report ---
PROCEDURE: Dexa Spine and/or Hip INDICATIONS: POST MENOPAUSAL TECHNIQUE: Dual energy x-ray absorptiometry (DXA) was performed on a mSilica System. Regions measur ed are the AP Spine, femoral neck, and if needed forearm. COMPARISON: 02/17/2017 FINDINGS: Lumbar Spine: Bone Mineral Density 1.37 g/cm/cm,T score 1.6, previously 1.1 Left Femoral Neck: Bone Mineral Density 0.97 g/cm/cm, T score -0.5, -0.1 Left Hip: Bone Mineral Density 0.91 g/cm/cm,T score -0.8, -0.1 (T score greater or equal to -1.0: NORMAL) (T score from -1.1 to -2.4: OSTEOPENIA) (T score less than or equal to -2.5 to: OSTEOPOROSIS) Impression: Bone mineral densities in the left femoral neck and head have decreased compared to 2017, but still w ithin the normal range. Patients with diagnosis of osteoporosis or osteopenia should have regular bone mineral density assess ment. For those eligible for Medicare, routine testing is allowed once every 2 years. Testing frequ ency can be increased for patients who have rapidly progressing disease or for those who are receivin g medical therapy to restore bone mass. Reviewed by: Wayne Fritz MD on 05/31/2022 8:56 AM PST Approved by: Wayne Fritz MD on 05/31/2022 8:56 AM PST Station ID: [id number]
== END 2022-05-31 07:59 | disposition home or self-care (01) ==
LOC: DI 07:58
PROVIDERS: ATTEND Internal Medicine
DX: Z78.0 Asymptomatic menopausal state (principal)

== ENCOUNTER 2022-11-08 13:51 | Outpatient (CLI) | payer OTHER, MEDICARE ==
[2022-11-08 14:03] LABS: CALCIUM, IONIZED 1.25 mmol/L (1.15-1.33); VBG PH 7.348 (7.31-7.41)
== END 2022-11-08 13:52 | disposition home or self-care (01) ==
LOC: LAB 13:51
PROVIDERS: ATTEND Internal Medicine
DX: E83.52 Hypercalcemia (principal); R60.9 Edema, unspecified; I47.20 Ventricular tachycardia, unspecified
CPT/HCPCS: 36415; 82330; 83880; 83970

== ENCOUNTER 2022-12-23 14:40 | Outpatient (CLI) | payer OTHER, MEDICARE ==
--- NOTE | 2022-12-23 18:38 | CT Report ---
PROCEDURE: THORACIC SPINE WO INDICATIONS: THORACIC BACK PAIN TECHNIQUE: Noncontrast 3 mm thick sections acquired through the region of interest in the thoracic spine. Sagit luis and coronal reformats were then constructed. For radiation dose reduction, the following was used : automated exposure control, adjustment of mA and/or kV according to patient size. COMPARISON: None. FINDINGS: Image quality: Excellent. Bones: No acute vertebral body compression fractures. No suspicious sclerotic or lytic bony lesion s. There is accentuated thoracic kyphosis. Mild levoconvex scoliotic curvature is seen. There is moderate disc space narrowing seen at T6-T7, with associated endplate irregularity and scler osis anteriorly. Several levels of bridging anterior osteophytes are seen. Milder degenerative change s are seen elsewhere. Soft tissues: No paravertebral masses or hematomas. Visualized posteromedial lungs appear clear. C holecystectomy clips are seen. Mild coronary calcification can be seen. Likely scarring change can be seen superior to the right kidney, as on series 3 image 150. IMPRESSION: Negative for acute thoracic spine fracture. Degenerative changes are seen, which are likely age-appropriate. No significant focal thoracic spine abnormality is seen. Additional findings: Mild coronary artery calcification Cholecystectomy Likely scarring change superior to the right kidney. Reviewed by: Donta Hidalgo MD on 12/23/2022 5:37 PM DIONI Approved by: Donta Hidalgo MD on 12/23/2022 5:37 PM AKKENNY Station ID: [id number]
== END 2022-12-23 14:41 | disposition home or self-care (01) ==
LOC: DI 14:40
PROVIDERS: ATTEND Internal Medicine
DX: M79.605 Pain in left leg (principal); R20.2 Paresthesia of skin; R20.0 Anesthesia of skin; M47.814 Spondylosis without myelopathy or radiculopathy, thoracic region

== ENCOUNTER 2023-01-13 14:47 | Outpatient (CLI) | payer OTHER, MEDICARE ==
[2023-01-13 15:06] LABS: CREATININE 1.3 mg/dL (0.6-1.3)
--- NOTE | 2023-01-16 09:57 | MRI Report ---
PROCEDURE: LUMBAR SPINE W/WO INDICATIONS: BACK PAIN, LEG NUMBNESS CONTRAST: GADAVIST 8.6 ML TECHNIQUE: Noncontrast sagittal T1 spin echo and T2 fast spin echo, sagittal STIR, axial T1 and T2 fast spin ech o through the lumbar spine. In cases with scoliosis, additional coronal T2 fast spin echo may be per formed. After the administration of contrast, sagittal and axial T1 spin echo with fat saturation th rough the lumbar spine. COMPARISON: CT abdomen and pelvis dated 11/10/2016. FINDINGS: Image quality: Excellent. Alignment and curvature: There is normal bony alignment. Posterior decompressive laminectomy at L3- L4 and L4-L5. Partial sacralization of L5. Marrow: Marrow is of normal overall signal. No acute vertebral body compression fractures. No susp icious marrow enhancement. There is enhancement of the facets bilaterally at L2-L3 secondary to sever e changes of facet arthritis. Spinal cord: Conus medullaris terminates at the T12-L1 level. Visualized spinal cord demonstrates n ormal signal, without suspicious enhancement. Paraspinous soft tissues: No paravertebral masses or abnormal enhancement. T12-L1: Normal in appearance. L1-L2: Normal in appearance. L2-L3: Exuberant facet hypertrophy, right greater than left. Posterior disc plus osteophyte. Above th e level of the disc, there is severe right lateral recess stenosis secondary to right facet hypertrop hy. At the level of the disc, there is severe central canal stenosis and bilateral lateral recess keith nosis. AP diameter of the central canal is 5.5 mm. There is severe bilateral foraminal narrowing with bilateral foraminal L2 nerve root impingement. L3-L4: Quite prominent facet hypertrophy. No residual canal stenosis. Moderate right foraminal narr owing with mild flattening deformity on the exiting right L3 nerve root. Moderate to severe left fora jozef narrowing with a degree of left foraminal L3 nerve root impingement. L4-L5: Prominent facet hypertrophy. No residual canal stenosis. Moderate right foraminal narrowing with flattening deformity on the exiting right L4 nerve root. L5-S1: Congenitally short pedicles. Prominent facet hypertrophy. Moderate canal stenosis. Mild to m oderate bilateral foraminal stenosis. IMPRESSION: 1. Remote posterior laminectomy at L3-L4 and L4-L5 with no residual canal stenosis. 2. There is moderate to severe left foraminal narrowing at L3-L4. 3. The most significant level is L2-L3. There is exuberant bilateral facet hypertrophy, right greater than left. There is severe right lateral recess stenosis above the disc level and severe central can al stenosis and bilateral lateral recess stenosis at the disc level. AP diameter of the canal is 5.5 mm. There is severe bilateral foraminal narrowing. 4. L5 is partially sacralized. There are congenitally short pedicles. There is moderate canal stenosi s. Reviewed by: Himanshu Maurer MD on 01/16/2023 9:56 AM PDT Approved by: Himanshu Maurer MD on 01/16/2023 9:56 AM PDT Station ID: [id number]
== END 2023-01-13 14:48 | disposition home or self-care (01) ==
LOC: LAB 14:47
PROVIDERS: ATTEND Internal Medicine
DX: R20.0 Anesthesia of skin (principal); Z79.899 Other long term (current) drug therapy; M48.061 Spinal stenosis, lumbar region without neurogenic claudication; M47.816 Spondylosis without myelopathy or radiculopathy, lumbar region
CPT/HCPCS: 36415; 72158; 82565; A9585

== ENCOUNTER 2023-03-12 12:32 | Emergency (ER) | payer OTHER, MEDICARE ==
[2023-03-12 12:56] VITALS: BP 123/81; O2SAT 99
--- OUTSIDE RECORDS SUMMARY | 2023-03-12 13:27 | EXTERNAL MEDICAL SUMMARY RPT | Continuity of Care Document ---
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 Name Role Phone Unavailable Unavailable Unavailable Percy, Provider Unavailable Unavailable Medications date description facility 2023-01-13 00:00 ondansetron hcl [facility] 2023-01-16 00:00 ondansetron hcl [facility] 2023-01-13 00:00 ondansetron hcl [facility] 2023-01-16 00:00 ondansetron hcl [facility] 2023-01-13 00:00 ondansetron hcl [facility] 2023-01-16 00:00 ondansetron hcl [facility] 2023-01-13 00:00 ondansetron hcl [facility] 2023-01-16 00:00 ondansetron hcl [facility] 2023-01-13 00:00 cyclobenzaprine [facility] 2023-01-16 00:00 cyclobenzaprine [facility] 2023-01-13 00:00 cyclobenzaprine [facility] 2023-01-16 00:00 cyclobenzaprine [facility] 2023-01-13 00:00 cyclobenzaprine [facility] 2023-01-16 00:00 cyclobenzaprine [facility] 2023-01-13 00:00 cyclobenzaprine [facility] 2023-01-16 00:00 cyclobenzaprine [facility] Results/Labs test date facility value unit notes Social History date description facility
[2023-03-12] MEDS ORDERED: ACETAMINOPHEN 325 MG TABLET PO STA (13:40)
--- NOTE | 2023-03-12 13:40 | ED Physician Documentation ---
History of Present Illness - Stated complaint Stated Complaint: GLF,FACE/ELBOW/KNEE PX - Chief complaint Chief Complaint: Trauma Hd/Nk - Additonal information Additional information: 72-year-old female here for evaluation of facial trauma and bruising after ground-level fall. She tripped on uneven concrete/pavement yesterday falling forward striking her right face on the ground. There was no loss of consciousness. She has subsequently developed fairly extensive bruising around the right eye and the right eyelid. Complaining of the right shoulder right elbow and right knee pain. Not anticoagulated. No loss of consciousness. She does endorse a mild headache but no vomiting. Neurologically intact on presentation. Review of Systems Constitutional: denies: Fever Eyes: denies: Loss of vision Throat: reports: Reviewed and negative Cardiac: reports: Reviewed and negative GI: reports: Reviewed and negative Skin: reports: Abrasion (s), Other (bruising) Musculoskeletal: reports: Reviewed and negative Neurologic: reports: Headache, Head injury. 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, Hysterectomy Derm: Skin cancer surgery - Present Medications Home Medications: Ambulatory Orders Medication Instructions Recorded Confirmed Carvedilol 12.5 mg PO BID 11/19/13 11/11/16 Enalapril [Vasotec] 10 mg PO BID 11/19/13 11/11/16 Levothyroxine [Synthroid] 200 mcg PO DAILY 11/19/13 11/11/16 hydroCHLOROthiazide 25 mg PO DAILY 11/19/13 11/11/16 [Hydrochlorothiazide] metFORMIN [Glucophage] 500 mg PO QDBREAKFAST 11/19/13 11/11/16 Ascorbic Acid [Vitamin C] 1,000 mg PO DAILY 11/10/16 11/11/16 Aspirin 325 mg PO DAILY 11/10/16 11/11/16 Atorvastatin [Lipitor] 10 mg PO QPM 11/10/16 11/11/16 Cholecalciferol (Vitamin D3) 2,000 unit PO DAILY 11/10/16 11/11/16 [Vitamin D3] raNITIdine HCL [Ranitidine HCl] 300 mg PO BID 11/10/16 11/11/16 Calcium Carbonate [Tums (Calcium 1,000 mg PO DAILY 11/11/16 11/11/16 Carbonate 500mg)] Dexlansoprazole [Dexilant] 60 mg PO DAILY 11/11/16 11/11/16 Metformin HCl 1,000 mg PO QDDINNER 11/11/16 11/11/16 Multivitamin [Theragran] 1 tab PO DAILY 11/11/16 11/11/16 Ostrander-3 Acid Ethyl Esters [Lovaza] 1 gm PO DAILY 11/11/16 11/11/16 Docusate Sodium 250Mg Capsule 250 mg PO BID PRN #30 capsule 11/12/16 [Colace 250Mg Capsule] Hydrocodone/Acetaminophen [Vicodin 1 each PO Q6HR PRN #20 tablet 11/12/16 5-300 mg Tablet] Sulfamethox/Trimeth 800/160 1 each PO BID #20 tablet 11/12/16 [Bactrim Ds 800/160] ondansetron HCL [Zofran] 8 mg PO Q8HR PRN #12 tablet 11/12/16 cephALEXin [Keflex] 500 mg PO Q6H #28 capsule 10/24/18 Hydrocodone/Acetaminophen 1 - 2 each PO Q6H PRN #14 tablet 12/07/18 [Hydrocodon-Acetaminophen 5-325] - Allergies Allergies/Adverse Reactions: Allergies Allergy/AdvReac Type Severity Reaction Status Date / Time betamethasone Allergy Severe Respiratory Verified 12/07/18 20:00 droperidol [From Inapsine] Allergy Severe Respiratory Verified 12/07/18 20:00 venlafaxine HCl * Allergy Severe Respiratory Verified 12/07/18 20:00 [From Effexor] nabumetone [From Relafen] Allergy Intermediate Unknown Verified 12/07/18 20:00 celecoxib [From Celebrex] AdvReac Intermediate Unknown Verified 12/07/18 20:00 Elbwxui-CYB-UdX Reductase AdvReac Intermediate Unknown Verified 12/07/18 20:00 Inhibitor [Oudlpqh-Fmk-Lui Reductase Inhibitor] - Social History Does the pt smoke?: No Smoking Status: Never smoker Does the pt drink ETOH?: No Does the pt have substance abuse?: No - Immunizations Immunizations are current?: Yes Immunizations: TDAP current <10years (2019) PD ED PE NORMAL - General General: Alert and oriented X 3, No acute distress, Well developed/nourished - HEENT HEENT: PERRL, EOMI (Extensive deep purple bruising and swelling of the right upper eyelid that extends to the medial canthus region. Normal vision of the right eye when the lid is elevated. Normal extraocular movements of this eye.), Ears normal. No: Atraumatic - Neck Neck: Supple, no meningeal sign - Cardiac Cardiac: RRR, No murmur - Respiratory Respiratory: No respiratory distress - Abdomen Abdomen: Normal bowel sounds - Back Back: No CVA TTP - Derm Derm: Normal color, Warm and dry - Extremities Extremities: No deformity, Other (Swelling and ecchymosis of the right lateral elbow with normal flexion extension, pronation and supination. Neurovascularly intact distally.). No: No tenderness to palpate (Mild tenderness with palpation of the right upper humeral region without obvious ecchymosis. Full range of motion of the shoulder.) - Neuro Neuro: Alert and oriented X 3, engineer technician 2-12 intact Eye Opening: Spontaneous Motor: Obeys Commands Verbal: Oriented GCS Score: 15 Results - Vitals Vitals: Vital Signs - 24 hr 03/12/23 12:52 Temperature 36 C L Heart Rate 62 Respiratory 16 Rate Blood Pressure 123/81 H O2 Saturation 99 Oxygen O2 Source Room air - Rads (name of study) right shoulder Relevant Findings:: Final report received (No acute bony abnormality.) right elbow Relevant Findings:: Final report received (no acute bony abnormality) cervical ct Relevant Findings:: Final report received (No acute fracture or traumatic subluxation of the cervical spine. Severe degenerative changes.) CT head Relevant Findings:: Final report received (Right forehead scalp hematoma with right periorbital soft tissue swelling. No associated fracture seen no intracranial hemorrhage is seen. No significant intracranial abnormality is seen.) [facility] ct Relevant Findings:: Final report received (Generalized right periorbital soft tissue swelling is seen without a facial bone fracture.) PD Medical Decision Making - ED course Complexity details: reviewed results, re-evaluated patient, d/w patient ED course: 72-year-old female presents emergency department for evaluation of closed head injury and facial trauma after tripping on uneven concrete yesterday, falling forward and striking her head on the ground. No loss of consciousness. She is not anticoagulated. She presents with significant amount of bruising to the upper eyelid on the right with extension to the medial canthus. No evidence of ocular trauma. Extraocular movements are intact. Soft globe. Normal vision when the eyelid is opened. CT of the head, cervical spine maxillofacial bones showed no acute traumatic injuries. An x-ray of the right shoulder and elbow were also negative. I considered concussion and given her reported headache this is likely a diagnosis. Clinically we have ruled out intracerebral hematoma. She presents with no strokelike deficits. No obvious fractures otherwise. She is discharged home in stable condition with recommendation to ice pack placement of the right eye 2-3 times a day. She declines narcotic prescription. Recommend Tylenol otherwise. Usual emergent return precautions discussed for worsening symptoms. Departure - Departure Disposition: 01 Home, Self Care Clinical Impression: Ground-level fall Concussion Qualifiers: Encounter type: initial encounter Loss of consciousness presence/duration: without LOC Qualified Code(s): S06.0X0A - Concussion without loss of consciousness, initial encounter Traumatic hematoma of right eyelid Qualifiers: Encounter type: initial encounter Qualified Code(s): S00.11XA - Contusion of right eyelid and periocular area, initial encounter Contusion of right elbow Qualifiers: Encounter type: initial encounter Qualified Code(s): S50.01XA - Contusion of right elbow, initial encounter Traumatic hematoma of forehead Qualifiers: Encounter type: initial encounter Qualified Code(s): S00.83XA - Contusion of other part of head, initial encounter Condition: Stable Record reviewed to determine appropriate education?: Yes Instructions: ED Hematoma Comments: You are seen today in the emergency department for bruising of your upper eyelid as well as forehead and pain in your right elbow and shoulder after a fall yesterday. The CT of your head, cervical spine and bones of your face did not show any broken bones or bruising or bleeding within the head. The x-ray of your shoulder and elbow are also negative. You do have a mild concussion as you have a minor headache. In general this should get better over the next week or so. Recommend Tylenol for headache and discomfort. Get lots of rest and drink plenty of fluids. Return to the ER if you find that you are having worsening headaches, uncontrolled vomiting, slurred speech, facial droop or any other new or worrisome symptoms. Forms: PCP List
--- NOTE | 2023-03-12 14:18 | XRAY Report ---
PROCEDURE: Elbow 3 View RT INDICATIONS: glf; pain TECHNIQUE: 3 views of the elbow were acquired. COMPARISON: Correlation is made with the accompanying shoulder plain films. FINDINGS: Bones: No acute fractures or dislocations. No suspicious bony lesions. Bony irregularity can be see n involving the medial and lateral epicondyles, lateral worse than medial. Soft tissues: No effusion. No suspicious soft tissue calcifications or masses. IMPRESSION: No acute bony abnormality. Reviewed by: Donta Hidalgo MD on 03/12/2023 1:17 PM D[facility]I Approved by: Donta Hidalgo MD on 03/12/2023 1:17 PM DIONI Station ID: [id number]
--- NOTE | 2023-03-12 14:20 | XRAY Report ---
PROCEDURE: Shoulder 3 View BILAT INDICATIONS: glf; pain TECHNIQUE: 4 views of each shoulder were acquired. COMPARISON: Additional plain films, 11/27/2019, left shoulder plain films, 07/18/2016. Correlation is m virgilio with the accompanying elbow plain films. FINDINGS: Bones: No fractures or dislocations. No suspicious bony lesions. Visualized ribs appear intact. O n the right, there is a humeral head anchor seen. Underlying degenerative changes are seen, including subacromial spurring on both sides. Soft tissues: Calcific tendinopathy is seen on the left. The visualized lungs are within normal limi ts. IMPRESSION: No acute bony abnormality. Postoperative and degenerative changes are seen. Reviewed by: Donta Hidalgo MD on 03/12/2023 1:19 PM [facility] Approved by: Donta Hidalgo MD on 03/12/2023 1:19 PM [facility]IONI Station ID: [id number]
--- NOTE | 2023-03-12 14:44 | CT Report ---
PROCEDURE: CERVICAL SPINE WO INDICATIONS: pain after glf TECHNIQUE: Noncontrast 3 mm thick sections acquired from the skull base to the T4 level. Sagittal and coronal r eformats were then constructed. For radiation dose reduction, the following was used: automated exp osure control, adjustment of mA and/or kV according to patient size. COMPARISON: None. FINDINGS: Image quality: Excellent. Bones: No fractures or dislocations. Visualized superior ribs are intact. There is straightening o f the normal cervical lordosis. There is severe degenerative changes including disc height loss, endp late sclerosis and osteophytosis. Severe facet arthropathy at C3-C4. Soft tissues: Prevertebral soft tissues are normal in thickness. No paravertebral hematomas. No ap ical pneumothoraces. IMPRESSION: No acute fracture or traumatic subluxation of the cervical spine. Severe degenerative changes. Reviewed by: Karyn Carter MD on 03/12/2023 2:42 PM PDT Approved by: Karyn Carter MD on 03/12/2023 2:42 PM PDT Station ID: [id number]
--- NOTE | 2023-03-12 14:47 | CT Report ---
PROCEDURE: MAXILLOFACIAL WO INDICATIONS: right eye bruising; r/o orbital fx TECHNIQUE: Noncontrast 1.5 mm thick axial images acquired from the mandible through the frontal sinuses, with co warren and sagittal reformatting. For radiation dose reduction, the following was used: automated ex posure control, adjustment of mA and/or kV according to patient size. COMPARISON: 12/07/2018 Correlation is also made with the accompanying CT examinations. FINDINGS: Image quality: Excellent. Bones and teeth: Orbital irvin are intact. Sinus irvin show no fracture or deformity. Nasal bones and septum are intact. Visualized portions of the mandible demonstrate no fractures or subluxation. Zygomatic arches are intact. Pterygoid plates are intact. Visualized portions of the skull base an d auditory canals are intact. Sinuses: Paranasal sinuses are aerated, without fluid levels, mucosal thickening, or mucoceles. Mas toid air cells are aerated. Soft tissues: Generalized right periorbital soft tissue swelling is seen. No focal soft tissue fluid collection is seen. Vascular: Visualized vascular structures appear normal in the absence of contrast. Bony vascular fo ramina and canals are intact. IMPRESSION: Generalized right periorbital soft tissue swelling is seen, without a facial bone fracture seen. Reviewed by: Donta Hidalgo MD on 03/12/2023 1:45 PM [facility] Approved by: Donta Hidalgo MD on 03/12/2023 1:45 PM [facility]I Station ID: [id number]
--- NOTE | 2023-03-12 14:48 | CT Report ---
PROCEDURE: HEAD WO INDICATIONS: GLF TECHNIQUE: Noncontrast 4.5 mm thick angled axial sections acquired from the foramen magnum to the vertex. For r adiation dose reduction, the following was used: automated exposure control, adjustment of mA and/or kV according to patient size. COMPARISON: 12/07/2018. Correlation is also made with the accompanying CT examinations. FINDINGS: Image quality: There is streak artifact seen through the skull base. CSF spaces: Basal cisterns are patent. No extra-axial fluid collections. Ventricles are normal in size and shape. Brain: No midline shift. No intracranial masses or hemorrhage. Flores-white matter interface is norm al. Skull and face: Soft tissue scalp hematoma can be seen involving the right forehead, with additional milder soft tissue swelling seen involving the right periorbital region. No associated fracture can be seen. Calvarium and visualized facial bones are intact, without suspicious lesions. Sinuses: Visualized sinuses and mastoids are clear. IMPRESSION: Right forehead scalp hematoma, with right periorbital soft tissue swelling. No associated fracture is seen. No intracranial hemorrhage is seen. No significant intracranial abnormality is seen. Reviewed by: Donta Hidalgo MD on 03/12/2023 1:47 PM [facility] Approved by: Donta Hidalgo MD on 03/12/2023 1:47 PM [facility] Station ID: [id number]
== END 2023-03-12 15:54 | disposition home or self-care (01) ==
LOC: ED 12:32
DX: S06.0X0A Concussion without loss of consciousness, initial encounter (principal); S00.11XA Contusion of right eyelid and periocular area, initial encounter; S00.83XA Contusion of other part of head, initial encounter; S50.01XA Contusion of right elbow, initial encounter; W01.0XXA Fall on same level from slipping, tripping and stumbling without subsequent striking against object, initial encounter; Z79.84 Long term (current) use of oral hypoglycemic drugs; I10 Essential (primary) hypertension; E11.9 Type 2 diabetes mellitus without complications
CPT/HCPCS: 70450; 70486; 72125; 73030; 73080; 99283; 99284; A9270

== ENCOUNTER 2023-05-31 19:11 | Outpatient (CLI) | payer OTHER, MEDICARE | END 2023-05-31 19:12 | disposition short-term general hospital (02) | LOC: EMS 19:11 | DX: R42 Dizziness and giddiness (principal); M25.561 Pain in right knee; W18.39XA Other fall on same level, initial encounter; Y92.009 Unspecified place in unspecified non-institutional (private) residence as the place of occurrence of the external cause; U07.1 COVID-19 | CPT/HCPCS: A0425; A0427 ==

== ENCOUNTER 2023-07-29 11:49 | Outpatient (CLI) | payer MEDICARE, OTHER ==
--- NOTE | 2023-07-29 15:12 | XRAY Report ---
PROCEDURE: Shoulder 2+V LT INDICATIONS: CONTUSION OF LEFT SHOULDER,INITIAL ENCOUNTER TECHNIQUE: 3 views of the shoulder were acquired. COMPARISON: 03/12/2023 FINDINGS: Bones: No acute fractures or dislocations. No suspicious bony lesions. Visualized ribs appear inta ct. Redemonstration of moderate degenerative changes of the left shoulder. Findings of calcific tendi nopathy noted. Soft tissues: No suspicious soft tissue calcifications. The visualized lungs are within normal limi ts. IMPRESSION: Left shoulder without acute osseous abnormalities. Moderate degenerative changes of the left shoulder with findings compatible with sequela chronic calcific rotator cuff tendinopathy. If there is continued clinical concern for pathology or occult fracture, consider follow-up imaging w ith repeat radiographs in 10-14 days and possible advanced imaging (CT, MRI, bone scan) if symptoms p ersist. Reviewed by: Flako Montgomery MD on 07/29/2023 3:11 PM PST Approved by: Flako Montgomery MD on 07/29/2023 3:11 PM PST Station ID: [id number]
--- NOTE | 2023-07-29 15:15 | XRAY Report ---
PROCEDURE: Ribs 3V BL INDICATIONS: CONTUSION OF LEFT FRONT WALL OF THORAX, INITIAL EN TECHNIQUE: 2 views of the left ribs were acquired. COMPARISON: None. FINDINGS: Surgical changes and devices: None. Bones and chest wall: No fractures or dislocations. No suspicious bony lesions. Overlying soft tis sues appear unremarkable. Lungs and pleura: The visualized lung appears clear. No pleural effusions or pneumothorax are visib le. IMPRESSION: No displaced fracture or pneumothorax. No acute cardiopulmonary abnormalities. Reviewed by: Flako Montgomery MD on 07/29/2023 3:13 PM PST Approved by: Flako Montgomery MD on 07/29/2023 3:13 PM PST Station ID: [id number]
--- NOTE | 2023-07-29 21:50 | XRAY Report ---
PROCEDURE: Hand 3+V LT INDICATIONS: CONTUSION OF LEFT HAND, INITIAL ENCOUNTER TECHNIQUE: 3 views of the hand(s) acquired. COMPARISON: None. FINDINGS: Bones: Left hand without acute fracture or dislocation. Polyarticular background degenerative change s predominantly involving the interphalangeal joints. No suspicious osseous lesions. Soft tissues: No suspicious soft tissue calcifications or masses. IMPRESSION: Left hand without acute fracture or dislocation. If there is persistent clinical concern for a radiographically occult fracture, recommend immobilizat ion and repeat imaging in 10 to 14 days. Reviewed by: Flako Montgomery MD on 07/29/2023 9:49 PM PST Approved by: Flako Montgomery MD on 07/29/2023 9:49 PM PST Station ID: [id number]
== END 2023-07-29 11:50 | disposition home or self-care (01) ==
LOC: DI 11:49
PROVIDERS: ATTEND Physician Assistant Medical
DX: S60.222A Contusion of left hand, initial encounter (principal); S20.212A Contusion of left front wall of thorax, initial encounter; S40.012A Contusion of left shoulder, initial encounter; M19.012 Primary osteoarthritis, left shoulder

== ENCOUNTER 2023-10-25 15:15 | Outpatient (CLI) | payer MEDICARE, OTHER | END 2023-10-25 23:59 | disposition short-term general hospital (02) | LOC: EMS 15:15 | DX: R07.89 Other chest pain (principal); R00.2 Palpitations | CPT/HCPCS: A0425; A0427 ==

== ENCOUNTER 2023-11-27 08:00 | Outpatient (CLI) | payer MEDICARE, OTHER | END 2023-11-27 23:59 | disposition home or self-care (01) | LOC: LAB 08:00 | PROVIDERS: ATTEND Emergency Medicine | DX: J02.9 Acute pharyngitis, unspecified (principal) | CPT/HCPCS: 87070 ==

== ENCOUNTER 2023-11-29 23:27 | Emergency (ER) | payer MEDICARE, OTHER ==
--- NOTE | 2023-11-30 01:34 | ED Physician Documentation ---
PD HPI OPHTHO - Stated complaint Stated Complaint: BLURRY VISION/EAR PX - Chief complaint Chief Complaint: Heent - History obtained from History obtained from: Patient - Additional information Additional information: 73yF p/w viral uri sx X 6 days With development of ear pain and yellow eye discharge today. Patient denies fever, nausea or vomiting, ear discharge or muffled hearing. 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, Hysterectomy Derm: Skin cancer surgery - Present Medications Home Medications: Ambulatory Orders Medication Instructions Recorded Confirmed Carvedilol 12.5 mg PO BID 11/19/13 11/11/16 Enalapril [Vasotec] 10 mg PO BID 11/19/13 11/11/16 Levothyroxine [Synthroid] 200 mcg PO DAILY 11/19/13 11/11/16 hydroCHLOROthiazide 25 mg PO DAILY 11/19/13 11/11/16 [Hydrochlorothiazide] metFORMIN [Glucophage] 500 mg PO QDBREAKFAST 11/19/13 11/11/16 Ascorbic Acid [Vitamin C] 1,000 mg PO DAILY 11/10/16 11/11/16 Aspirin 325 mg PO DAILY 11/10/16 11/11/16 Atorvastatin [Lipitor] 10 mg PO QPM 11/10/16 11/11/16 Cholecalciferol (Vitamin D3) 2,000 unit PO DAILY 11/10/16 11/11/16 [Vitamin D3] raNITIdine HCL [Ranitidine HCl] 300 mg PO BID 11/10/16 11/11/16 Calcium Carbonate [Tums (Calcium 1,000 mg PO DAILY 11/11/16 11/11/16 Carbonate 500mg)] Dexlansoprazole [Dexilant] 60 mg PO DAILY 11/11/16 11/11/16 Metformin HCl 1,000 mg PO QDDINNER 11/11/16 11/11/16 Multivitamin [Theragran] 1 tab PO DAILY 11/11/16 11/11/16 George-3 Acid Ethyl Esters [Lovaza] 1 gm PO DAILY 11/11/16 11/11/16 Docusate Sodium 250Mg Capsule 250 mg PO BID PRN #30 capsule 11/12/16 [Colace 250Mg Capsule] Hydrocodone/Acetaminophen [Vicodin 1 each PO Q6HR PRN #20 tablet 11/12/16 5-300 mg Tablet] Sulfamethox/Trimeth 800/160 1 each PO BID #20 tablet 11/12/16 [Bactrim Ds 800/160] ondansetron HCL [Zofran] 8 mg PO Q8HR PRN #12 tablet 11/12/16 cephALEXin [Keflex] 500 mg PO Q6H #28 capsule 10/24/18 Hydrocodone/Acetaminophen 1 - 2 each PO Q6H PRN #14 tablet 12/07/18 [Hydrocodon-Acetaminophen 5-325] Amoxicillin 875 mg PO BID #10 tablet 11/30/23 Carboxymethylcellulose Sodium 15 ml OP TID #15 ml 11/30/23 [Artificial Tears] Mineral Oil/Petrolatum,White 3.5 gm OP QPM #1 gm 11/30/23 [Lubricant Pm Eye Ointment] - Allergies Allergies/Adverse Reactions: Allergies Allergy/AdvReac Type Severity Reaction Status Date / Time betamethasone Allergy Severe Respiratory Verified 11/29/23 23:43 droperidol [From Inapsine] Allergy Severe Respiratory Verified 11/29/23 23:43 venlafaxine HCl * Allergy Severe Respiratory Verified 11/29/23 23:43 [From Effexor] nabumetone [From Relafen] Allergy Intermediate Unknown Verified 11/29/23 23:43 celecoxib [From Celebrex] AdvReac Intermediate Unknown Verified 11/29/23 23:43 Erbblhg-WZR-LwS Reductase AdvReac Intermediate Unknown Verified 11/29/23 23:43 Inhibitor [Nfaoeeb-Wnl-Dtv Reductase Inhibitor] - Social History Does the pt smoke?: No Smoking Status: Never smoker Does the pt drink ETOH?: No Does the pt have substance abuse?: No - Immunizations Immunizations are current?: Yes Immunizations: TDAP current <10years (2019) - POLST Patient has POLST: No PD ED PE NORMAL - Vitals Vital signs reviewed: Yes - General General: Alert and oriented X 3, No acute distress, Well developed/nourished - HEENT HEENT: Atraumatic, PERRL, EOMI, Moist mucous membranes, Pharynx benign, Other (Bilateral otitis media) - Neck Neck: Supple, no meningeal sign - Cardiac Cardiac: RRR - Respiratory Respiratory: No respiratory distress, Clear bilaterally Results - Vitals Vitals: Vital Signs - 24 hr 11/29/23 11/30/23 11/30/23 23:38 01:44 01:51 Temperature 36.7 C 36.8 C 36.8 C Heart Rate 63 72 Respiratory 18 16 Rate Blood Pressure 166/69 H 154/72 H O2 Saturation 98 100 Oxygen O2 Source Room air PD Medical Decision Making - ED course ED course: 73-year-old woman presents with viral URI for the past 6 days with bilateral otitis media, ear exam. She also has some mild eye discharge that is likely viral. Antibiotics sent to pharmacy. Plan to follow-up with primary care provider. Return precautions given. Departure - Departure Disposition: 01 Home, Self Care Clinical Impression: Ear infection, Eye discharge, Cough, Sore throat Condition: Stable Instructions: ED Otitis Media Serous Adult Prescriptions: Amoxicillin 875 mg PO BID #10 tablet Carboxymethylcellulose Sodium [Artificial Tears] 15 ml OP TID #15 ml Mineral Oil/Petrolatum,White [Lubricant Pm Eye Ointment] 3.5 gm OP QPM #1 gm Comments: You were seen in the emergency department for ear infection, eye discharge and viral upper respiratory infection. Antibiotics sent to [facility]. Please follow-up with your primary care provider and return to the emergency dep artment if you have any new or worsening symptoms or other concerns. Forms: PCP List Discharge Date/Time: 11/30/23 01:53
[2023-11-30] MEDS: oxyCODONE 5 MG TABLET PO STA (01:47)
[2023-11-30] MEDS: ACETAMINOPHEN 325 MG TABLET PO STA (01:48)
[2023-11-30 01:50] VITALS: BP 154/72; O2SAT 100
== END 2023-11-30 01:53 | disposition home or self-care (01) ==
LOC: ED 23:27
DX: H66.93 Otitis media, unspecified, bilateral (principal); H57.89 Other specified disorders of eye and adnexa; J06.9 Acute upper respiratory infection, unspecified
CPT/HCPCS: 99283; A9270

== ENCOUNTER 2023-12-08 15:30 | Outpatient (CLI) | payer MEDICARE, OTHER | END 2023-12-08 23:59 | disposition short-term general hospital (02) | LOC: EMS 15:30 | DX: R07.9 Chest pain, unspecified (principal); R00.2 Palpitations; I48.91 Unspecified atrial fibrillation | CPT/HCPCS: A0425; A0429 ==

== ENCOUNTER 2023-12-27 07:25 | Outpatient (CLI) | payer MEDICARE, OTHER | END 2023-12-27 23:59 | disposition short-term general hospital (02) | LOC: EMS 07:25 | DX: R07.9 Chest pain, unspecified (principal) | CPT/HCPCS: A0425; A0427 ==